=== PATIENT | male | born 1970 | race Caucasian/White ===

== ENCOUNTER 2023-02-02 21:49 | Inpatient (IN) | payer MEDICAID, SELFPAY ==
--- NOTE | ~2023-02-02 | XR_ITS ---
EXAMINATION: XR ABDOMEN KUB CLINICAL INDICATION: Bloating with question of bowel obstruction COMPARISON: None available. TECHNIQUE: AP view of the abdomen. FINDINGS: The bowel gas pattern is normal with no evidence of ileus or obstruction. No unusual soft tissue calcifications are noted. The bones are unremarkable. XR/XR KUB IMPRESSION: Unremarkable examination.
--- NOTE | ~2023-02-02 | XR_ITS ---
EXAMINATION: XR CHEST CLINICAL INFORMATION: Shortness of breath. COMPARISON: 02/02/2023 chest radiograph. TECHNIQUE: Frontal view of the chest was obtained. FINDINGS: No significant abnormality is noted involving the heart, lungs, mediastinum, bony thorax or soft tissues. XR/XR chest 1V IMPRESSION: No acute cardiopulmonary process.
--- NOTE | ~2023-02-02 | XR_ITS ---
EXAMINATION: XR CHEST CLINICAL INFORMATION: Dyspnea COMPARISON: None available. TECHNIQUE: Frontal view of the chest was obtained. FINDINGS: Lungs appear mildly hyperinflated and there is peribronchial thickening present. No CHF, focal focal consolidations or pleural effusions. Old healed left-sided rib fractures are noted. XR/XR chest 1V IMPRESSION: Hyperinflated lungs with peribronchial thickening.
[2023-02-02 21:53] VITALS: BP 139/89; BP 142/90; PULSE 120; PULSE 121; RESP 28; TEMP 36.3; O2SAT 100; O2SAT 92; BMI 23.7
--- NOTE | 2023-02-02 22:05 | ECG_ITS ---
Test Reason : DYSPNEA Blood Pressure : / mmHG Vent. Rate : 112 BPM Atrial Rate : 112 BPM P-R Int : 142 ms QRS Dur : 082 ms QT Int : 346 ms P-R-T Axes : 080 064 059 degrees QTc Int : 472 ms Poor data quality Sinus tachycardia Cannot rule out Anterior infarct , age undetermined Abnormal ECG No previous ECGs available Referred By: Generic ED Physician Electronically Signed By:ALEE SNYDER MD
[2023-02-02 22:16] LABS: MANUAL DIFF FLAG NO
[2023-02-02 22:18] LABS: Basophils Absolute Auto 0.1 X10*3/uL (0.0-0.2); Basophils Percent Auto 0.4 % (0-2); Eosinophils Absolute Auto 0.2 X10*3/uL (0.0-0.4); Eosinophils Percent Auto 1.3 % (0-4); Hematocrit 48.1 % (42.0-52.0); Hemoglobin 15.8 g/dl (14.0-18.0); Imm Gran Abs Auto 0.06 X10*3/uL (0.00-0.03); Imm Gran Pct Auto 0.5 % (0.0-0.4); Lymphocytes Absolute Auto 1.5 X10*3/uL (1.2-4.9); Mean Corpuscular HGB Conc 32.8 g/dl (31.0-36.0); Mean Corpuscular Hemoglobin 32.7 pg (27.0-33.0); Mean Corpuscular Volume 99.6 fL (80.0-98.0); Mean Platelet Volume 9.7 fL (9.4-12.4); Monocytes Absolute Auto 1.1 X10*3/uL (0.1-1.2); Monocytes Percent Auto 8.6 % (2-11); Neutrophils Absolute Auto 9.8 x10*3/uL (2.0-8.3); Neutrophils Percent Auto 77.2 % (45-73); Platelet Count 258 X10*3/uL (160-400); Red Blood Count 4.83 X10*6/uL (4.60-5.80); Red Cell Distribution Width 12.1 % (11.0-16.0); White Blood Count 12.6 X10*3/uL (4.8-10.8)
[2023-02-02] MEDS: Magnesium Sulfate/D5W 1 GM/100 ML PIGGYBACK IV (22:18)
[2023-02-02 22:24] LABS: Venous Blood Gas Refer to POC result
[2023-02-02 22:24] LABS: VBG Base Excess 0.5 mmol/L; VBG HCO3 28 mmol/L (22-26); VBG pCO2 57 mmHg; VBG pO2 58 mmHg
[2023-02-02] MEDS: Albuterol Sulfate (0.083%) 2.5 MG/3 ML VIAL.NEB 10 MG INHALE (22:24)
[2023-02-02 22:25] VITALS: PULSE 111; RESP 22; O2SAT 95
[2023-02-02 22:26] VITALS: RESP 28
[2023-02-02 22:31] LABS: Anion Gap 15 (12-20); Blood Urea Nitrogen 7 mg/dL (9-16); Calcium 8.9 mg/dL (8.4-10.2); Carbon Dioxide 25 mmol/L (22-29); Chloride 106 mmol/L (96-108); Creatinine Clr Calc Pharmacy 118.9; Estimated Glomerular Filt Rate > 60; Glucose Random 124 mg/dL (60-115); Potassium 4.6 mmol/L (3.3-5.1); Sodium 141 mmol/L (135-145)
[2023-02-02 22:53] LABS: Troponin-I High Sensitivity < 2.7 ng/L (<3.5-35.0)
--- NOTE | 2023-02-02 22:54 | ED_ITS ---
HPI - General Adult General Chief complaint: Dyspnea Stated complaint: copd Time Seen by Provider: 02/02/23 21:56 Source: patient, RN notes reviewed and old records reviewed Mode of arrival: ambulatory Limitations: no limitations History of Present Illness HPI narrative: 52-year-old male with past medical history significant for COPD, not on chronic O2, PTSD, anxiety presents for evaluation of shortness of breath Patient reports worsening shortness of breath for the last few weeks. He reports sinus pressure as well, productive cough Denies any fevers or chills. He reports having general body aches for last few weeks as well. He has been trying loratadine and Sudafed with minimal relief Patient continues to smoke tobacco in varying amounts per day. He also uses marijuana but denies any a very abuse No other complaints or concerns Apparently when the patient called EMS, he was found have an oxygen saturation of 84% on room air He was given a DuoNeb, Solu-Medrol 125 mg IV EN route Related Data Home Medications Medication Instructions Recorded Confirmed albuterol 90 mcg/actuation aerosol 90 mcg inhalation Q6-8H PRN Pain, 02/02/23 02/02/23 inhaler Moderate ibuprofen 200 mg tablet 200 mg PO Q6H PRN Pain, Moderate 02/02/23 02/02/23 Allergies Allergy/AdvReac Type Severity Reaction Status Date / Time No Known Allergies Allergy Verified 02/02/23 22:08 Review of Systems Constitutional: Constitutional: Reports as per HPI, Reports body ache(s), Denies chills, Denies fever(s) and Reports weakness Eyes: Eyes: Denies blurry vision ENT: Reports facial pain, Reports nasal congestion and Reports sinus pressure Cardiovascular: Cardiovascular: Denies chest pain, Denies pedal edema, Reports dyspnea and Reports dyspnea on exertion Respiratory: Respiratory: Reports cough, Reports dyspnea, Reports dyspnea on exertion and Reports wheezing Gastrointestinal: Gastrointestinal: Denies abdominal pain, Denies constipation and Denies vomiting Genitourinary: Genitourinary: Denies difficulty urinating and Denies dysuria Neurologic: Denies focal weakness and Reports weakness Allergic/Immunologic: Allergic/Immunologic: Reports wheezing PMFSH Social History Social History Alcohol intake: never Smoked in Last 30 Days: Yes Use of substances other than those prescribed or required for medical reasons: No Advance Directives: No Advance Directives Information Provided: No Physical Exam ED Vital Signs: Vital Signs - 24 hr 02/02/23 21:53 02/02/23 22:25 02/02/23 22:26 Temperature 97.4 F Pulse Rate 121 H 111 H Respiratory Rate 28 H 22 H 28 H Blood Pressure 139/89 Pulse Oximetry 92 Oxygen Delivery Method Nasal Cannula Oxygen Flow Rate 02/02/23 23:31 Temperature 97 F Pulse Rate 128 H Respiratory Rate 22 H Blood Pressure 150/91 H Pulse Oximetry 94 Oxygen Delivery Method Nasal Cannula Oxygen Flow Rate 4 BMI result Body Mass Index 23.7 Const General: alert and awake Orientation/consciousness: patient oriented x3 HENMT Head: Yes normocephalic and Yes atraumatic Throat: Yes posterior oropharynx normal Eyes Eyelids: Yes eyelids normal Conjunctivae: conjunctivae normal Sclerae: sclerae normal Corneas: corneas normal Pupils: Equal, round and reactive pupils present EOM: EOMs intact bilaterally Neck Neck: Yes full ROM Resp Effort & Inspection: abnormal respiratory effort and not able to speak in complete sentences Auscultation: not clear to auscultation bilaterally and wheezes (Diffuse expiratory wheeze) Cardio Rhythm: regular rhythm GI Inspection: No distended Palpation (GI): Soft to palpation, not firm, nontender, no guarding and not rigid Auscultation: normoactive bowel sounds Skin General skin exam: no rashes or lesions noted and elasticity normal Neuro General: patient oriented x3 Cranial nerves: Yes CN's II-XII intact bilaterally, Yes Equal, round and reactive pupils present and Yes Bilaterally intact EOM present Cognition (Neuro): normal cognition Extrem Other: Moving all extremities well without any obvious deformities Course Reevaluation(s) Reevaluation #1: Rib at the patient reports feeling better present oxygen saturation is 90% on 4 L. Will ambulate the patient on room air, if he decides to likely require admission. Patient's chest x-ray shows bronchial thickening. Given his COPD exacerbation of bronchial thickening will treat with azithromycin. She reports feeling constipation and bloating for last few days. We will get an x-ray to evaluate for constipation rule out obstructive bowel pattern. Time: 23:55 Medications Administered Discontinued Medications Generic Name Dose Route Start Last Admin Trade Name Freq PRN Reason Stop Dose Admin Albuterol Sulfate 10 mg 02/02/23 22:11 02/02/23 22:24 Albuterol Sulfate (0.083%) 2.5 Mg/3 Ml Vial.Neb INHALE 02/02/23 22:12 10 mg ONCE ONE Administration Magnesium Sulfate/Dextrose 1 gm in 100 mls @ 100 mls/hr 02/02/23 22:11 02/02/23 23:20 Magnesium Sulfate/D5w IV 02/02/23 23:10 Infused ONCE ONE Infusion Medical Decision Making Medical Decision Making [facility] Narrative: 52-year-old male presents for evaluation of shortness of breath. He has a history of COPD is presenting with chronic pulmonary disease. This is possibly allergy induced as he reports having increased allergies and facial pressure for last 3 weeks. Chest x-ray pending, [place] [id number]. The patient was hypoxic to 84% on room air for EMS will opt to see how he ambulates on room air to determine disposition. His venous blood gas shows a very slight respiratory acidosis. Differential Diagnosis COPD exacerbation Asthma Bronchitis Pneumonia Viral syndrome Sinusitis PE less likely Lab Data 02/02/23 22:08 02/02/23 22:08 Labs: Lab Results 02/02/23 02/02/23 02/02/23 Range/Units 22:08 22:08 22:08 WBC 12.6 H (4.8-10.8) X10*3/uL RBC 4.83 (4.60-5.80) X10*6/uL Hgb 15.8 (14.0-18.0) g/dl Hct 48.1 (42.0-52.0) % MCV 99.6 H (80.0-98.0) fL MCH 32.7 (27.0-33.0) pg MCHC 32.8 (31.0-36.0) g/dl RDW 12.1 (11.0-16.0) % Plt Count 258 (160-400) X10*3/uL MPV 9.7 (9.4-12.4) fL Immature Gran % (Auto) 0.5 H (0.0-0.4) % Neut % (Auto) 77.2 H (45-73) % Lymph % (Auto) 12.0 L (20-40) % [place] % (Auto) 8.6 (2-11) % Eos % (Auto) 1.3 (0-4) % Baso % (Auto) 0.4 (0-2) % Lymph # (Auto) 1.5 (1.2-4.9) X10*3/uL [place] # (Auto) 1.1 (0.1-1.2) X10*3/uL Eos # (Auto) 0.2 (0.0-0.4) X10*3/uL Baso # (Auto) 0.1 (0.0-0.2) X10*3/uL Abs Immat Gran (auto) 0.06 H (0.00-0.03) X10*3/uL Absolute Neuts (auto) 9.8 H (2.0-8.3) x10*3/uL Absolute Nucleated RBC 0.000 (0.0-0.012) X10*3/uL Nucleated RBC % (auto) 0.0 (0.0-0.2) /100WBC VBG pH (7.32-7.43) VBG pCO2 mmHg VBG pO2 mmHg VBG HCO3 (22-26) mmol/L VBG O2 Saturation % VBG Base Excess mmol/L Sodium 141 (135-145) mmol/L Potassium 4.6 (3.3-5.1) mmol/L Chloride 106 (96-108) mmol/L Carbon Dioxide 25 (22-29) mmol/L Anion Gap 15 (12-20) BUN 7 L (9-16) mg/dL Creatinine 0.83 (0.5-1.4) mg/dL Estim Creat Clear Calc 118.9 Estimated GFR > 60 Random Glucose 124 H (60-115) mg/dL Calcium 8.9 (8.4-10.2) mg/dL Troponin I High Sens < 2.7 (<3.5-35.0) ng/L COVID-19 ([facility]) (Negative) COVID-19 Clin Com Influenza Type A ([facility]) (Negative) Influenza Type B ([facility]) (Negative) Influenza A & B Note 02/02/23 02/02/23 02/02/23 Range/Units 22:15 22:49 22:49 WBC (4.8-10.8) X10*3/uL RBC (4.60-5.80) X10*6/uL Hgb (14.0-18.0) g/dl Hct (42.0-52.0) % MCV (80.0-98.0) fL MCH (27.0-33.0) pg MCHC (31.0-36.0) g/dl RDW (11.0-16.0) % Plt Count (160-400) X10*3/uL MPV (9.4-12.4) fL Immature Gran % (Auto) (0.0-0.4) % Neut % (Auto) (45-73) % Lymph % (Auto) (20-40) % [place] % (Auto) (2-11) % Eos % (Auto) (0-4) % Baso % (Auto) (0-2) % Lymph # (Auto) (1.2-4.9) X10*3/uL [place] # (Auto) (0.1-1.2) X10*3/uL Eos # (Auto) (0.0-0.4) X10*3/uL Baso # (Auto) (0.0-0.2) X10*3/uL Abs Immat Gran (auto) (0.00-0.03) X10*3/uL Absolute Neuts (auto) (2.0-8.3) x10*3/uL Absolute Nucleated RBC (0.0-0.012) X10*3/uL Nucleated RBC % (auto) (0.0-0.2) /100WBC VBG pH 7.30 L (7.32-7.43) VBG pCO2 57 mmHg VBG pO2 58 mmHg VBG HCO3 28 H (22-26) mmol/L VBG O2 Saturation 83.0 % VBG Base Excess 0.5 mmol/L Sodium (135-145) mmol/L Potassium (3.3-5.1) mmol/L Chloride (96-108) mmol/L Carbon Dioxide (22-29) mmol/L Anion Gap (12-20) BUN (9-16) mg/dL Creatinine (0.5-1.4) mg/dL Estim Creat Clear Calc Estimated GFR Random Glucose (60-115) mg/dL Calcium (8.4-10.2) mg/dL Troponin I High Sens (<3.5-35.0) ng/L COVID-19 ([facility]) Negative (Negative) COVID-19 Clin Com See Note Influenza Type A ([facility]) Negative (Negative) Influenza Type B ([facility]) Negative (Negative) Influenza A & B Note See Note Discharge Plan Discharge Clinical Impression: COPD exacerbation Patient Disposition: Admitted As Inpatient Prescriptions: No Action ibuprofen 200 mg Tablet 200 mg PO Q6H PRN (Reason: Pain, Moderate) albuterol 90 mcg/actuation Aerosol 90 mcg INHALATION Q6-8H PRN (Reason: Pain, Moderate)
[2023-02-02 23:16] LABS: IDNOW Serial# BCCEAD1C; Influenza A Negative (Negative); Influenza B2 Negative (Negative)
[2023-02-02 23:17] LABS: COVID-19 Test Negative (Negative); IDNOW Serial# 08D9AD1C
[2023-02-02 23:31] VITALS: BP 150/91; PULSE 128; RESP 22; TEMP 36.1; O2SAT 94
--- NOTE | 2023-02-02 23:59 | PC.NURSE ---
Ambulating pulse ox 89% on RA. Pt with audible wheezes and weakness. MARSHAL Sumner aware.
[2023-02-03] VITALS (12 sets, daily range): BP systolic 101–139; BP diastolic 63–84; PULSE 90–116; RESP 16–22; TEMP 36.1–37.1; O2SAT 93–97; BMI 23.7
--- NOTE | 2023-02-03 00:10 | P.HPHOSP_ITS ---
History of Present Illness Date of Service: 02/03/23 Chief Complaint: Dyspnea This is a 52-year-old male with pertinent history of COPD not on home oxygen, tobacco use disorder, major depressive disorder who presents to the emergency department for evaluation of dyspnea. Patient states that started 48 hours prior to presentation. He has been having nonproductive cough and wheezing. The dyspnea is worse with exertion. Patient tried his home inhaler without any relief. Patient called EMS who found him to be satting 84% on room air. Does endorse use of cigarettes. He denies fever, chills, palpitations, chest discomfort, abdominal pain, changes in urinary or bowel habits. In the emergency department, patient was found to be hypoxemic and requiring 4 L supplemental oxygen Review of Systems Constitutional: Constitutional: Reports malaise Cardiovascular: Cardiovascular: Reports dyspnea on exertion Respiratory: Respiratory: Reports cough, Reports dyspnea on exertion and Reports wheezing Allergic/Immunologic: Allergic/Immunologic: Reports wheezing [facility] Medical History (Updated 02/03/23 @ 00:29 by Soila Grant MD) Cannabis use disorder COPD (chronic obstructive pulmonary disease) Major depressive disorder PTSD (post-traumatic stress disorder) Tobacco use disorder Pertinent family history: No family history of early CAD Social History Alcohol intake: never Smoked in Last 30 Days: Yes Use of substances other than those prescribed or required for medical reasons: No Advance Directives: No Advance Directives Information Provided: No Meds Allergies Allergy/AdvReac Type Severity Reaction Status Date / Time No Known Allergies Allergy Verified 02/02/23 22:08 Active Medications: Current Medications Azithromycin 500 mg/ Sodium (Chloride) 250 mls @ 125 mls/hr IV ONCE ONE Stop: 02/03/23 01:53 Pharmacy Consult (Consult Rx Perform Med Rec) 1 each MISCELLANE ONCE PRN PRN Reason: Consult order Home Medications Medication Instructions Recorded Confirmed Last Taken Type albuterol 90 mcg/actuation aerosol 90 mcg inhalation Q6-8H PRN Pain, 02/02/23 02/02/23 02/02/23 History inhaler Moderate ibuprofen 200 mg tablet 200 mg PO Q6H PRN Pain, Moderate 02/02/23 02/02/23 02/02/23 History Physical Exam Vital Signs and Narrative: Vital Signs: Last Vital Signs Temp 97 F 02/02/23 23:31 Pulse 128 H 02/02/23 23:31 Resp 22 H 02/02/23 23:31 BP 150/91 H 02/02/23 23:31 Pulse Ox 94 02/02/23 23:31 O2 Del Method Nasal Cannula 02/02/23 23:31 O2 Flow Rate 4 02/02/23 23:31 Oxygen Flow Rate 4 02/02/23 21:53 BMI result Body Mass Index 23.7 Middle-aged male lying in bed in mild distress on supplemental oxygen Neck supple, no JVD Tachycardic with regular rhythm, S1-S2 heard Bilateral wheezing without crackles Abdomen soft nontender, no guarding, no rigidity Patient is awake, alert and oriented to self, place, time and person ; no focal motor deficit Psych: Normal mood No pedal edema Results Labs 02/02/23 22:08 02/02/23 22:08 Labs: Laboratory Results - last 24 hr 02/02/23 02/02/23 02/02/23 22:08 22:08 22:08 MCV 99.6 H MCH 32.7 MCHC 32.8 RDW 12.1 Plt Count 258 MPV 9.7 Immature Gran % (Auto) 0.5 H Neut % (Auto) 77.2 H Lymph % (Auto) 12.0 L [place] % (Auto) 8.6 Eos % (Auto) 1.3 Baso % (Auto) 0.4 Lymph # (Auto) 1.5 [place] # (Auto) 1.1 Eos # (Auto) 0.2 Baso # (Auto) 0.1 Abs Immat Gran (auto) 0.06 H Absolute Neuts (auto) 9.8 H Absolute Nucleated RBC 0.000 Nucleated RBC % (auto) 0.0 VBG pH VBG pCO2 VBG pO2 VBG HCO3 VBG O2 Saturation VBG Base Excess Anion Gap 15 Estim Creat Clear Calc 118.9 Estimated GFR > 60 Random Glucose 124 H Calcium 8.9 Troponin I High Sens < 2.7 COVID-19 ([facility]) COVID-19 Clin Com Influenza Type A ([facility]) Influenza Type B ([facility]) Influenza A & B Note 02/02/23 02/02/23 02/02/23 22:15 22:49 22:49 MCV MCH MCHC RDW Plt Count MPV Immature Gran % (Auto) Neut % (Auto) Lymph % (Auto) [place] % (Auto) Eos % (Auto) Baso % (Auto) Lymph # (Auto) [place] # (Auto) Eos # (Auto) Baso # (Auto) Abs Immat Gran (auto) Absolute Neuts (auto) Absolute Nucleated RBC Nucleated RBC % (auto) VBG pH 7.30 L VBG pCO2 57 VBG pO2 58 VBG HCO3 28 H VBG O2 Saturation 83.0 VBG Base Excess 0.5 Anion Gap Estim Creat Clear Calc Estimated GFR Random Glucose Calcium Troponin I High Sens COVID-19 ([facility]) Negative COVID-19 Clin Com See Note Influenza Type A ([facility]) Negative Influenza Type B ([facility]) Negative Influenza A & B Note See Note Imaging Radiologist's Impressions: Impressions Chest X-Ray 02/02/23 22:43 IMPRESSION: Hyperinflated lungs with peribronchial thickening. Assessment and Plan (1) COPD (chronic obstructive pulmonary disease): Status: Acute Plan This is a 52-year-old male with pertinent history of COPD not on home oxygen, tobacco use disorder, major depressive disorder who presents to the emergency department for evaluation of dyspnea. #. Acute hypoxemic respiratory failure due to Acute exacerbation of COPD. Will admit patient with supplemental oxygen. Scheduled and p.r.n. DuoNebs. In itiating systemic steroids. Azithromycin for pleiotropic effect. Monitor oxygen saturation and wean as tolerated, maintain oxygen saturation greater than 88% #. Tobacco use disorder. Counseled regarding cessation. Patient refused nicotine patch #. Major depressive disorder/posttraumatic stress disorder. Patient would like pharmacologic treatment while he is in the hospital. Consulting psych, appreciate assistance DVT prophylaxis: Lovenox Full code Regular diet Admit as inpatient and will require two night minimum hospital stay for supplemental oxygen Time Spent With Patient Time: Total time managing care of this patient today ____ minutes. Quality Stroke Does the patient have a stroke diagnosis?: No VTE Prior VTE?: No VTE Risk Level:: Medical - moderate - high VTE Device Contraindication: Treatment Not Indicated VTE Drug Contraindication: N/A - Med Ordered
[2023-02-03] MEDS: Azithromycin 500 MG in 0.9 % Sodium Chloride 250 ML 125 MG IV ×2 (00:17→20:56)
[2023-02-03] MEDS: Enoxaparin Sodium 40 MG/0.4 ML SYRINGE SUBCUT ×2 (01:28→20:57)
[2023-02-03] MEDS: methylPREDNISolone Sod Succ 40 MG/ML VIAL IVPUSH ×2 (01:29→12:30)
[2023-02-03] MEDS: Melatonin 3 MG TABLET 6 MG PO ×2 (01:29→20:57)
[2023-02-03] MEDS: polyethylene glycoL 3350 17 GM POWD.PACK PO ×3 (01:29→20:58)
[2023-02-03] MEDS: Acetaminophen 325 MG TABLET 650 MG PO (03:02)
[2023-02-03] MEDS: levalbuterol HCL 1.25 MG/3 ML VIAL.NEB INHALE ×3 (03:53→11:44)
[2023-02-03 06:59] LABS: Basophils Percent Auto 0.2 % (0-2); Eosinophils Percent Auto 0.1 % (0-4); Hematocrit 45.9 % (42.0-52.0); Hemoglobin 15.6 g/dl (14.0-18.0); Imm Gran Abs Auto 0.05 X10*3/uL (0.00-0.03); Imm Gran Pct Auto 0.5 % (0.0-0.4); Lymphocytes Absolute Auto 0.5 X10*3/uL (1.2-4.9); Lymphocytes Percent Auto 5.1 % (20-40); MANUAL DIFF FLAG SCAN; Mean Corpuscular Hemoglobin 34.2 pg (27.0-33.0); Mean Corpuscular Volume 100.7 fL (80.0-98.0); Mean Platelet Volume 9.7 fL (9.4-12.4); Monocytes Absolute Auto 0.1 X10*3/uL (0.1-1.2); Monocytes Percent Auto 1.1 % (2-11); Platelet Count 248 X10*3/uL (160-400); Red Blood Count 4.56 X10*6/uL (4.60-5.80); Red Cell Distribution Width 12.2 % (11.0-16.0); SCAN SMEAR FLAG 1; White Blood Count 9.7 X10*3/uL (4.8-10.8)
[2023-02-03 07:13] LABS: Anion Gap 16 (12-20); Blood Urea Nitrogen 9 mg/dL (9-16); Calcium 9.3 mg/dL (8.4-10.2); Carbon Dioxide 24 mmol/L (22-29); Chloride 106 mmol/L (96-108); Creatinine Clr Calc Pharmacy 118.9; Estimated Glomerular Filt Rate > 60; Glucose Random 170 mg/dL (60-115); Potassium 5.1 mmol/L (3.3-5.1); Sodium 141 mmol/L (135-145)
[2023-02-03 07:20] LABS: SLIDE REVIEW VERIFIED
--- NOTE | 2023-02-03 07:52 | PHA.MEDREC ---
Pharmacy Consult ? Medication Reconciliation Pharmacy has completed the medication reconciliation. Pharmacy has reviewed med rec done by nursing.
[2023-02-03] MEDS: 0.9 % Sodium Chloride Flush 3 ML SYRINGE IVFLUSH ×3 (07:56→20:58)
--- NOTE | 2023-02-03 09:22 | MHC.CM.PN ---
PT REPORTS HE LIVES WITH FRIENDS AND IS INDEPENDENT WITH CARE PT HAS A NEBULIZER AND INHALERS AT HOME HE HAS NO SERVICES PT HAS NO PCP BUT ASKS THAT AN APPT BE MADE WITH JOSE JACQUES AT [facility] IF SHE WILL ACCEPT TASK SENT TO [facility] DC PLAN IS HOME WITH NO SERVICES PT WILL ARRANGE TRANSPORT
[2023-02-03] MEDS: LORazepam 0.5 MG TABLET 0.25 MG PO (12:28)
[2023-02-03] MEDS: Docusate Sodium 100 MG CAPSULE PO ×2 (12:28→20:57)
[2023-02-03] MEDS: Albuterol/Iprat 2.5/0.5MG 3 ML AMPUL.NEB INHALE ×2 (15:06→19:36)
--- NOTE | 2023-02-03 15:32 | P.CNPS_ITS ---
History of Present Illness Date of Service: 02/03/23 Chief Complaint: Dyspnea Reason for Consult: assess for medications Requesting physician: Soila Grant Discussed with referring provider: No Sources of Information: patient interviewed and chart reviewed HPI Narrative: 52-year-old male with pertinent history of COPD not on home oxygen, tobacco use disorder, major depressive disorder who presents to the emergency department for evaluation of dyspnea. Patient treated for acute exacerbation of COPD. Stabilizing. Psych consulted to assess for medication for depression/anxiety. Patient reports that he is physically feeling much better and he is grateful that he got up self to the hospital. He says he has had his history of depression, anxiety and PTSD however says that he is overall doing fine and does not feel the need for any medication. Patient said he has tried SSRIs in the past but reiterates he does not like them and feels capable of coping on his own. Patient denies any SI or HI. Past Psychiatric History: History of PTSD, depression; history of SSRI trials Medical Evaluation Reviewed: Yes [facility] Medical History (Updated 02/03/23 @ 16:27 by Jolene Nascimento MD) Cannabis use disorder COPD (chronic obstructive pulmonary disease) Major depressive disorder PTSD (post-traumatic stress disorder) Tobacco use disorder Family History: Deferred Social History: Patient lives on his own in the [facility] Substance History: Deferred Trauma History: Patient reports history of trauma but does not provide details Diagnostics Vital Signs (24Hr): Vital Signs - 24 hr 02/02/23 21:53 02/02/23 22:25 02/02/23 22:26 Temperature 97.4 F Pulse Rate 121 H 111 H Respiratory Rate 28 H 22 H 28 H Blood Pressure 139/89 Pulse Oximetry 92 Oxygen Delivery Method Nasal Cannula Oxygen Flow Rate 02/02/23 23:31 02/03/23 01:12 02/03/23 03:56 Temperature 97 F 98.8 F Pulse Rate 128 H 113 H 112 H Respiratory Rate 22 H 19 16 Blood Pressure 150/91 H 131/78 Pulse Oximetry 94 95 Oxygen Delivery Method Nasal Cannula Nasal Cannula Oxygen Flow Rate 4 4 02/03/23 02:20 02/03/23 08:00 02/03/23 08:33 Temperature 97.9 F 97.3 F Pulse Rate 116 H 109 H 108 H Respiratory Rate 22 H 20 16 Blood Pressure 132/81 133/84 Pulse Oximetry 95 94 Oxygen Delivery Method Nasal Cannula Nasal Cannula Oxygen Flow Rate 4 4 02/03/23 12:00 02/03/23 11:47 02/03/23 15:10 Temperature 97.7 F Pulse Rate 105 H 102 H 114 H Respiratory Rate 20 16 18 Blood Pressure 129/66 Pulse Oximetry 95 Oxygen Delivery Method Nasal Cannula Oxygen Flow Rate 4 BMI result Body Mass Index 23.7 Labs 02/03/23 06:47 02/03/23 06:47 Labs: Laboratory Results - last 48 hr 02/02/23 02/02/23 02/02/23 22:08 22:08 22:08 WBC 12.6 H RBC 4.83 Hgb 15.8 Hct 48.1 MCV 99.6 H MCH 32.7 MCHC 32.8 RDW 12.1 Plt Count 258 MPV 9.7 Immature Gran % (Auto) 0.5 H Neut % (Auto) 77.2 H Lymph % (Auto) 12.0 L [place] % (Auto) 8.6 Eos % (Auto) 1.3 Baso % (Auto) 0.4 Lymph # (Auto) 1.5 [place] # (Auto) 1.1 Eos # (Auto) 0.2 Baso # (Auto) 0.1 Abs Immat Gran (auto) 0.06 H Absolute Neuts (auto) 9.8 H Absolute Nucleated RBC 0.000 Nucleated RBC % (auto) 0.0 Smear Tech's Comments VBG pH VBG pCO2 VBG pO2 VBG HCO3 VBG O2 Saturation VBG Base Excess Sodium 141 Potassium 4.6 Chloride 106 Carbon Dioxide 25 Anion Gap 15 BUN 7 L Creatinine 0.83 Estim Creat Clear Calc 118.9 Estimated GFR > 60 Random Glucose 124 H Calcium 8.9 Troponin I High Sens < 2.7 COVID-19 ([facility]) COVID-19 Clin Com Influenza Type A (ALYSON) Influenza Type B (ALYSON) Influenza A & B Note 02/02/23 02/02/23 02/02/23 22:15 22:49 22:49 WBC RBC Hgb Hct MCV MCH MCHC RDW Plt Count MPV Immature Gran % (Auto) Neut % (Auto) Lymph % (Auto) [place] % (Auto) Eos % (Auto) Baso % (Auto) Lymph # (Auto) [place] # (Auto) Eos # (Auto) Baso # (Auto) Abs Immat Gran (auto) Absolute Neuts (auto) Absolute Nucleated RBC Nucleated RBC % (auto) Smear Tech's Comments VBG pH 7.30 L VBG pCO2 57 VBG pO2 58 VBG HCO3 28 H VBG O2 Saturation 83.0 VBG Base Excess 0.5 Sodium Potassium Chloride Carbon Dioxide Anion Gap BUN Creatinine Estim Creat Clear Calc Estimated GFR Random Glucose Calcium Troponin I High Sens COVID-19 ([facility]) Negative COVID-19 Clin Com See Note Influenza Type A (ALYSON) Negative Influenza Type B (ALYSON) Negative Influenza A & B Note See Note 02/03/23 02/03/23 06:47 06:47 WBC 9.7 RBC 4.56 L Hgb 15.6 Hct 45.9 MCV 100.7 H MCH 34.2 H MCHC 34.0 RDW 12.2 Plt Count 248 MPV 9.7 Immature Gran % (Auto) 0.5 H Neut % (Auto) 93.0 H Lymph % (Auto) 5.1 L [place] % (Auto) 1.1 L Eos % (Auto) 0.1 Baso % (Auto) 0.2 Lymph # (Auto) 0.5 L [place] # (Auto) 0.1 Eos # (Auto) 0.0 Baso # (Auto) 0.0 Abs Immat Gran (auto) 0.05 H Absolute Neuts (auto) 9.0 H Absolute Nucleated RBC 0.000 Nucleated RBC % (auto) 0.0 Smear Tech's Comments VERIFIED VBG pH VBG pCO2 VBG pO2 VBG HCO3 VBG O2 Saturation VBG Base Excess Sodium 141 Potassium 5.1 Chloride 106 Carbon Dioxide 24 Anion Gap 16 BUN 9 Creatinine 0.83 Estim Creat Clear Calc 118.9 Estimated GFR > 60 Random Glucose 170 H Calcium 9.3 Troponin I High Sens COVID-19 ([facility]) COVID-19 Clin Com Influenza Type A (ALYSON) Influenza Type B (ALYSON) Influenza A & B Note Imaging Radiology Impressions: ITS Impressions Chest X-Ray 02/02/23 22:43 IMPRESSION: Hyperinflated lungs with peribronchial thickening. KUB X-Ray 02/03/23 00:11 IMPRESSION: Unremarkable examination. Mental Status Exam Mental Status Exam Narrative: Pt is alert and oriented, resting comfortably in hospital bed; behavior is cooperative, friendly and calm; patient is not in distress; dressed in hospital attire with dreadlocks; mood is described as better and affect congruent; eye contact appropriate; Speech is normal rate, volume and prosody and not pressured; no psychomotor agitation/retardation present; thought process is organized and goal directed; Thought content is on medical illness resolving; otherwise pertinent to relevant topics and without any delusional content, paranoid ideations or grandiosity; denies any SI/HI. There is no evidence of perceptual disturbance. Patients insight and judgment appear intact. Medications Medications Current Medications Acetaminophen (Acetaminophen 325 Mg Tablet) 650 mg PO Q6H PRN PRN Reason: Pain, Mild (Pain Scale 1-3) Last Admin: 02/03/23 03:02 Dose: 650 mg Albuterol/Ipratropium (Albuterol/Iprat 2.5/0.5mg 3 Ml Ampul.Neb) 3 ml INHALE RQ4H WHILE AWAKE [facility] Last Admin: 02/03/23 15:06 Dose: 3 ml Docusate Sodium (Docusate Sodium 100 Mg Capsule) 100 mg PO BID [facility] Last Admin: 02/03/23 12:28 Dose: 100 mg Enoxaparin Sodium (Enoxaparin Sodium 40 Mg/0.4 Ml Syringe) 40 mg SUBCUT BEDTIME [facility] Last Admin: 02/03/23 01:28 Dose: 40 mg Famotidine (Famotidine 20 Mg Tablet) 20 mg PO BID [facility] Guaifenesin (Guaifenesin 100 Mg/5 Ml Liquid) 10 ml PO Q4H PRN PRN Reason: Cough Azithromycin 500 mg/ Sodium (Chloride) 250 mls @ 125 mls/hr IV Q24H [facility] Ipratropium [place] (Ipratropium [place] 1 Puff/17 Mcg Inhaler) 2 puff INHALE Q3H PRN PRN Reason: Wheezing Levalbuterol HCl (Levalbuterol Hcl 1.25 Mg/3 Ml Vial.Neb) 1.25 mg INHALE Q3H PRN PRN Reason: Wheezing Loratadine (Loratadine 10 Mg Tablet) 10 mg PO DAILY [facility] Melatonin (Melatonin 3 Mg Tablet) 6 mg PO BEDTIME PRN PRN Reason: Insomnia Last Admin: 02/03/23 01:29 Dose: 6 mg Methylprednisolone Sodium Succinate (Methylprednisolone Sod Succ 40 Mg/Ml Vial) 40 mg IVPUSH Q12H [facility] Last Admin: 02/03/23 12:30 Dose: 40 mg Ondansetron HCl (Ondansetron Hcl 4 Mg/2 Ml Vial) 4 mg IVPUSH Q8H PRN PRN Reason: Nausea and Vomiting Pharmacy Consult (Consult Rx Perform Med Rec) 1 each MISCELLANE ONCE PRN PRN Reason: Consult order Polyethylene Glycol (Polyethylene Glycol 3350 17 Gm Powd.Pack) 17 gm PO BID [facility] Last Admin: 02/03/23 12:31 Dose: 17 gm Sodium Chloride (0.9 % Sodium Chloride Flush 3 Ml Syringe) 3 ml IVFLUSH QSHIFT [facility] Last Admin: 02/03/23 07:56 Dose: 3 ml Allergies Allergies Allergy/AdvReac Type Severity Reaction Status Date / Time No Known Allergies Allergy Verified 02/02/23 22:08 Assessment & Plan Assessment & Plan (1) COPD exacerbation: Status: Acute Code(s): J44.1 - Chronic obstructive pulmonary disease with (acute) exacerbation (2) Cannabis use disorder: Status: Acute Code(s): F12.90 - Cannabis use, unspecified, uncomplicated Plan 52-year-old male with pertinent history of COPD not on home oxygen, tobacco use disorder, major depressive disorder who presents to the emergency department for evaluation of dyspnea. Patient reports history of intermittent depression and anxiety however currently he is feeling fine and does not want any medications for symptoms. No recommendations at this time Total time managing care of this patient today ____ minutes. Patient educated on: diagnosis and medication risk/benefits Informed Consent: understands
--- NOTE | 2023-02-03 16:20 | HO.PM.IMPN ---
Subjective Subjective Date of Service: 02/03/23 Interval History: COPD exacerbation , constipation Review of Systems Patient still significant she is short of breath, wheezing Feel constipated Somewhat anxious. Physical Exam Vital Signs: Vital Signs: Last Vital Signs Temp 97.0 F 02/03/23 15:39 Pulse 106 H 02/03/23 15:39 Resp 20 02/03/23 15:39 BP 127/79 02/03/23 15:39 Pulse Ox 95 02/03/23 15:39 O2 Del Method Nasal Cannula 02/03/23 15:39 O2 Flow Rate 4 02/03/23 15:39 Oxygen Flow Rate 4 02/02/23 21:53 BMI result Body Mass Index 23.7 similar to yesterday Objective Data Active Medications Acetaminophen (Acetaminophen 325 Mg Tablet) 650 mg PO Q6H PRN PRN Reason: Pain, Mild (Pain Scale 1-3) Last Admin: 02/03/23 03:02 Dose: 650 mg Documented By: MADISON Albuterol/Ipratropium (Albuterol/Iprat 2.5/0.5mg 3 Ml Ampul.Neb) 3 ml INHALE RQ4H WHILE AWAKE [facility] Last Admin: 02/03/23 15:06 Dose: 3 ml Documented By: LOLIS Docusate Sodium (Docusate Sodium 100 Mg Capsule) 100 mg PO BID [facility] Last Admin: 02/03/23 12:28 Dose: 100 mg Documented By: SLY Enoxaparin Sodium (Enoxaparin Sodium 40 Mg/0.4 Ml Syringe) 40 mg SUBCUT BEDTIME [facility] Last Admin: 02/03/23 01:28 Dose: 40 mg Documented By: LELO Famotidine (Famotidine 20 Mg Tablet) 20 mg PO BID [facility] Guaifenesin (Guaifenesin 100 Mg/5 Ml Liquid) 10 ml PO Q4H PRN PRN Reason: Cough Azithromycin 500 mg/ Sodium (Chloride) 250 mls @ 125 mls/hr IV Q24H [facility] Ipratropium [place] (Ipratropium [place] 1 Puff/17 Mcg Inhaler) 2 puff INHALE Q3H PRN PRN Reason: Wheezing Levalbuterol HCl (Levalbuterol Hcl 1.25 Mg/3 Ml Vial.Neb) 1.25 mg INHALE Q3H PRN PRN Reason: Wheezing Loratadine (Loratadine 10 Mg Tablet) 10 mg PO DAILY [facility] Melatonin (Melatonin 3 Mg Tablet) 6 mg PO BEDTIME PRN PRN Reason: Insomnia Last Admin: 02/03/23 01:29 Dose: 6 mg Documented By: LELO Methylprednisolone Sodium Succinate (Methylprednisolone Sod Succ 40 Mg/Ml Vial) 40 mg IVPUSH Q12H [facility] Last Admin: 02/03/23 12:30 Dose: 40 mg Documented By: SLY Ondansetron HCl (Ondansetron Hcl 4 Mg/2 Ml Vial) 4 mg IVPUSH Q8H PRN PRN Reason: Nausea and Vomiting Pharmacy Consult (Consult Rx Perform Med Rec) 1 each MISCELLANE ONCE PRN PRN Reason: Consult order Polyethylene Glycol (Polyethylene Glycol 3350 17 Gm Powd.Pack) 17 gm PO BID [facility] Last Admin: 02/03/23 12:31 Dose: 17 gm Documented By: SLY Sodium Chloride (0.9 % Sodium Chloride Flush 3 Ml Syringe) 3 ml IVFLUSH QSHIFT [facility] Last Admin: 02/03/23 07:56 Dose: 3 ml Documented By: SLY Labs 02/03/23 06:47 02/03/23 06:47 Labs: Laboratory Results - last 24 hr 02/02/23 02/02/23 02/02/23 22:08 22:08 22:08 MCV 99.6 H MCH 32.7 MCHC 32.8 RDW 12.1 Plt Count 258 MPV 9.7 Immature Gran % (Auto) 0.5 H Neut % (Auto) 77.2 H Lymph % (Auto) 12.0 L [place] % (Auto) 8.6 Eos % (Auto) 1.3 Baso % (Auto) 0.4 Lymph # (Auto) 1.5 [place] # (Auto) 1.1 Eos # (Auto) 0.2 Baso # (Auto) 0.1 Abs Immat Gran (auto) 0.06 H Absolute Neuts (auto) 9.8 H Absolute Nucleated RBC 0.000 Nucleated RBC % (auto) 0.0 Smear Tech's Comments VBG pH VBG pCO2 VBG pO2 VBG HCO3 VBG O2 Saturation VBG Base Excess Anion Gap 15 Estim Creat Clear Calc 118.9 Estimated GFR > 60 Random Glucose 124 H Calcium 8.9 Troponin I High Sens < 2.7 COVID-19 ([facility]) COVID-19 Clin Com Influenza Type A (AL[facility]ON) Influenza Type B ([facility]ON) Influenza A & B Note 02/02/23 02/02/23 02/02/23 22:15 22:49 22:49 MCV MCH MCHC RDW Plt Count MPV Immature Gran % (Auto) Neut % (Auto) Lymph % (Auto) [place] % (Auto) Eos % (Auto) Baso % (Auto) Lymph # (Auto) [place] # (Auto) Eos # (Auto) Baso # (Auto) Abs Immat Gran (auto) Absolute Neuts (auto) Absolute Nucleated RBC Nucleated RBC % (auto) Smear Tech's Comments VBG pH 7.30 L VBG pCO2 57 VBG pO2 58 VBG HCO3 28 H VBG O2 Saturation 83.0 VBG Base Excess 0.5 Anion Gap Estim Creat Clear Calc Estimated GFR Random Glucose Calcium Troponin I High Sens COVID-19 ([facility]) Negative COVID-19 Clin Com See Note Influenza Type A ([facility]ON) Negative Influenza Type B ([facility]ON) Negative Influenza A & B Note See Note 02/03/23 02/03/23 06:47 06:47 MCV 100.7 H MCH 34.2 H MCHC 34.0 RDW 12.2 Plt Count 248 MPV 9.7 Immature Gran % (Auto) 0.5 H Neut % (Auto) 93.0 H Lymph % (Auto) 5.1 L [place] % (Auto) 1.1 L Eos % (Auto) 0.1 Baso % (Auto) 0.2 Lymph # (Auto) 0.5 L [place] # (Auto) 0.1 Eos # (Auto) 0.0 Baso # (Auto) 0.0 Abs Immat Gran (auto) 0.05 H Absolute Neuts (auto) 9.0 H Absolute Nucleated RBC 0.000 Nucleated RBC % (auto) 0.0 Smear Tech's Comments VERIFIED VBG pH VBG pCO2 VBG pO2 VBG HCO3 VBG O2 Saturation VBG Base Excess Anion Gap 16 Estim Creat Clear Calc 118.9 Estimated GFR > 60 Random Glucose 170 H Calcium 9.3 Troponin I High Sens COVID-19 ([facility]) COVID-19 Clin Com Influenza Type A (ALYSON) Influenza Type B ([facility]ON) Influenza A & B Note Assessment and Plan (1) COPD (chronic obstructive pulmonary disease): Status: Acute (2) COPD exacerbation: Status: Acute (3) Constipation: Status: Acute Plan 52-year-old male with pertinent history of COPD not on home oxygen, tobacco use disorder, major depressive disorder who presents to the emergency department for evaluation of dyspnea. Acute hypoxemic respiratory failure due to Acute exacerbation of COPD.? Monitor oxygen saturation and wean as tolerated, maintain oxygen saturation greater than 88% still sob wth mininmal excersion continue supplemental oxygen.? Scheduled and p.r.n. DuoNebs.? Initiating systemic steroids.? Azithromycin for pleiotropic effect.? ? Tobacco use disorder.? Counseled regarding cessation.? Patient refused nicotine patch. ? Major depressive disorder/posttraumatic stress disorder.? Patient would like pharmacologic treatment while he is in the hospital.? Consulting psych, appreciate assistance Constipation: Added bowel regimen. anxiety-added psych DVT prophylaxis:? Lovenox Regular diet inpatient need:Acute hypoxemic respiratory failure due to COPDexacerbation -not imporving yet-needs nebs ,steriods ,antibiotics ,suppl oxygen.? Time Spent With Patient Time: Total time managing care of this patient today ____ minutes. Quality Stroke Does the patient have a stroke diagnosis?: No VTE Prior VTE?: No VTE Risk Level:: Medical - moderate - high VTE Device Contraindication: Treatment Not Indicated VTE Drug Contraindication: N/A - Med Ordered
[2023-02-03] MEDS: Famotidine 20 MG TABLET PO (20:57)
[2023-02-03] MEDS: LORazepam 2 MG/ML VIAL 0.5 MG IVPUSH (21:41)
[2023-02-03] MEDS: Throat Lozenge, Medicated LOZENGE 1 LOZENGE MUCOUS MEM (21:42)
[2023-02-04] VITALS (9 sets, daily range): BP systolic 102–125; BP diastolic 65–84; PULSE 69–99; RESP 18–20; TEMP 36.2–37.2; O2SAT 92–96
[2023-02-04] MEDS: methylPREDNISolone Sod Succ 40 MG/ML VIAL IVPUSH ×2 (00:45→11:49)
[2023-02-04] MEDS: Albuterol/Iprat 2.5/0.5MG 3 ML AMPUL.NEB INHALE ×4 (07:18→20:37)
[2023-02-04] MEDS: Milk of Magnesia 30 ML ORAL.SUSP PO (08:26)
[2023-02-04] MEDS: Loratadine 10 MG TABLET PO (08:26)
[2023-02-04] MEDS: Docusate Sodium 100 MG CAPSULE PO ×2 (08:26→20:37)
[2023-02-04] MEDS: 0.9 % Sodium Chloride Flush 3 ML SYRINGE IVFLUSH ×3 (08:26→20:43)
[2023-02-04] MEDS: polyethylene glycoL 3350 17 GM POWD.PACK PO ×2 (08:26→20:37)
[2023-02-04] MEDS: Famotidine 20 MG TABLET PO ×2 (08:26→20:37)
--- NOTE | 2023-02-04 10:25 | MHC.CM.PN ---
EMR reviewed and per MD rounds, pt not medically cleared for D/C due to continued dyspnea and hypoxia. CM will continue to follow.
--- NOTE | 2023-02-04 17:39 | P.PNIM_ITS ---
Subjective Subjective Date of Service: 02/04/23 Interval History: COPD exacerbation , constipation Review of Systems short of breath similar to yesterday , wheezing Feel constipated Physical Exam Vital Signs: Vital Signs: Last Vital Signs Temp 98.5 F 02/04/23 15:04 Pulse 74 02/04/23 15:26 Resp 19 02/04/23 15:26 BP 121/75 02/04/23 15:04 Pulse Ox 94 02/04/23 15:04 O2 Del Method Nasal Cannula 02/04/23 15:04 O2 Flow Rate 4 02/04/23 15:04 Oxygen Flow Rate 4 02/02/23 21:53 BMI result Body Mass Index 23.7 Appearance: Alert.? Oriented X3.?sob cvs: rrr, [id number] . res: air entry diminsed ,has exp wheezing abd: no rebound or guarding ,nt, bs present. ext pulses present , no cyanosis . neuro: axo3 , nonfocal. Objective Data Active Medications Acetaminophen (Acetaminophen 325 Mg Tablet) 650 mg PO Q6H PRN PRN Reason: Pain, Mild (Pain Scale 1-3) Last Admin: 02/03/23 03:02 Dose: 650 mg Documented By: MADISON Albuterol/Ipratropium (Albuterol/Iprat 2.5/0.5mg 3 Ml Ampul.Neb) 3 ml INHALE RQ4H WHILE AWAKE [facility] Last Admin: 02/04/23 15:25 Dose: 3 ml Documented By: JONO Albuterol/Ipratropium (Albuterol/Iprat 2.5/0.5mg 3 Ml Ampul.Neb) 3 ml INHALE Q3H PRN PRN Reason: sob Docusate Sodium (Docusate Sodium 100 Mg Capsule) 100 mg PO BID [facility] Last Admin: 02/04/23 08:26 Dose: 100 mg Documented By: TYRA Enoxaparin Sodium (Enoxaparin Sodium 40 Mg/0.4 Ml Syringe) 40 mg SUBCUT BEDTIME [facility] Last Admin: 02/03/23 20:57 Dose: 40 mg Documented By: ALESSANDRO Famotidine (Famotidine 20 Mg Tablet) 20 mg PO BID [facility] Last Admin: 02/04/23 08:26 Dose: 20 mg Documented By: TYRA Guaifenesin (Guaifenesin 100 Mg/5 Ml Liquid) 10 ml PO Q4H PRN PRN Reason: Cough Azithromycin 500 mg/ Sodium (Chloride) 250 mls @ 125 mls/hr IV Q24H [facility] Last Infusion: 02/04/23 00:49 Dose: 0 mls/hr Documented By: ADWOA Loratadine (Loratadine 10 Mg Tablet) 10 mg PO DAILY [facility] Last Admin: 02/04/23 08:26 Dose: 10 mg Documented By: TYRA Melatonin (Melatonin 3 Mg Tablet) 6 mg PO BEDTIME PRN PRN Reason: Insomnia Last Admin: 02/03/23 20:57 Dose: 6 mg Documented By: ALESSANDRO Methylprednisolone Sodium Succinate (Methylprednisolone Sod Succ 40 Mg/Ml Vial) 40 mg IVPUSH Q12H [facility] Last Admin: 02/04/23 11:49 Dose: 40 mg Documented By: TYRA Ondansetron HCl (Ondansetron Hcl 4 Mg/2 Ml Vial) 4 mg IVPUSH Q8H PRN PRN Reason: Nausea and Vomiting Pharmacy Consult (Consult Rx Perform Med Rec) 1 each MISCELLANE ONCE PRN PRN Reason: Consult order Polyethylene Glycol (Polyethylene Glycol 3350 17 Gm Powd.Pack) 17 gm PO BID [facility] Last Admin: 02/04/23 08:26 Dose: 17 gm Documented By: TYRA Sodium Chloride (0.9 % Sodium Chloride Flush 3 Ml Syringe) 3 ml IVFLUSH QSHIFT [facility] Last Admin: 02/04/23 15:51 Dose: 3 ml Documented By: TYRA Labs 02/03/23 06:47 02/03/23 06:47 Assessment and Plan (1) COPD (chronic obstructive pulmonary disease): Status: Acute (2) COPD exacerbation: Status: Acute (3) Constipation: Status: Acute Plan 52-year-old male with pertinent history of COPD not on home oxygen, tobacco use disorder, major depressive disorder who presents to the emergency department for evaluation of dyspnea. Acute hypoxemic respiratory failure due to Acute exacerbation of COPD.? Monitor oxygen saturation and wean as tolerated, maintain oxygen saturation greater than 88% still sob wth mininmal excersion continue supplemental oxygen.? Scheduled and p.r.n. DuoNebs.? Initiating systemic steroids.? Azithromycin for pleiotropic effect.? ? Tobacco use disorder.? Counseled regarding cessation.? Patient refused nicotine patch. ? Major depressive disorder/posttraumatic stress disorder.? Patient would like pharmacologic treatment while he is in the hospital.? Consulting psych, appreciate assistance Constipation: Added bowel regimen. anxiety-added psych DVT prophylaxis:? Lovenox Regular diet inpatient need:Acute hypoxemic respiratory failure due to COPDexacerbation -not imporving yet-needs nebs ,steriods ,antibiotics ,suppl oxygen.? Time Spent With Patient Time: Total time managing care of this patient today ____ minutes. Quality Stroke Does the patient have a stroke diagnosis?: No VTE Prior VTE?: No VTE Risk Level:: Medical - moderate - high VTE Device Contraindication: Treatment Not Indicated VTE Drug Contraindication: N/A - Med Ordered
[2023-02-04] MEDS: Enoxaparin Sodium 40 MG/0.4 ML SYRINGE SUBCUT (20:37)
[2023-02-04] MEDS: Azithromycin 500 MG in 0.9 % Sodium Chloride 250 ML 125 MG IV (20:37)
[2023-02-05] VITALS (10 sets, daily range): BP systolic 114–132; BP diastolic 71–76; PULSE 74–92; RESP 17–20; TEMP 36.7–37.4; O2SAT 89–96
[2023-02-05] MEDS: methylPREDNISolone Sod Succ 40 MG/ML VIAL IVPUSH ×2 (01:28→12:43)
[2023-02-05] MEDS: Albuterol/Iprat 2.5/0.5MG 3 ML AMPUL.NEB INHALE ×5 (03:46→20:18)
[2023-02-05 08:41] LABS: VBG Base Excess 7.6 mmol/L; VBG HCO3 32 mmol/L (22-26); VBG pCO2 44 mmHg; VBG pH 7.47 (7.32-7.43); VBG pO2 85 mmHg
[2023-02-05 08:46] LABS: Venous Blood Gas Refer to POC result
[2023-02-05] MEDS: polyethylene glycoL 3350 17 GM POWD.PACK PO ×2 (09:15→21:50)
[2023-02-05] MEDS: Loratadine 10 MG TABLET PO (09:15)
[2023-02-05] MEDS: Docusate Sodium 100 MG CAPSULE PO ×2 (09:15→21:51)
[2023-02-05] MEDS: Famotidine 20 MG TABLET PO ×2 (09:15→21:51)
[2023-02-05] MEDS: 0.9 % Sodium Chloride Flush 3 ML SYRINGE IVFLUSH (09:16)
--- NOTE | 2023-02-05 10:40 | MHC.CM.PN ---
EMR reviewed and per MD rounds, pt not medically cleared for D/C as he is not yet improved with his COPD exacerbation and continues with shortness of breath on minimal exertion. CM will continue to follow.
[2023-02-05] MEDS: Lactulose 20 GM/30 ML SOLUTION PO (14:27)
--- NOTE | 2023-02-05 17:31 | HO.PM.IMPN ---
Subjective Subjective Date of Service: 02/05/23 Interval History: COPD exacerbation , constipation Review of Systems Shortness of breath seems similar and no improvement Denies any chest pain Still feel constipated Physical Exam Vital Signs: Vital Signs: Last Vital Signs Temp 98.9 F 02/05/23 15:05 Pulse 88 02/05/23 15:46 Resp 20 02/05/23 15:46 BP 119/71 02/05/23 15:05 Pulse Ox 91 L 02/05/23 15:05 O2 Del Method Nasal Cannula 02/05/23 15:05 O2 Flow Rate 4 02/05/23 11:55 Oxygen Flow Rate 4 02/02/23 21:53 BMI result Body Mass Index 23.7 ? Appearance: Alert.? Oriented X3.?sob cvs: rrr, [id number] . res: air entry diminsed ,has exp wheezing abd: no rebound or guarding ,nt, bs present. ext pulses present , no cyanosis . neuro: axo3 , nonfocal. Objective Data Active Medications Acetaminophen (Acetaminophen 325 Mg Tablet) 650 mg PO Q6H PRN PRN Reason: Pain, Mild (Pain Scale 1-3) Last Admin: 02/03/23 03:02 Dose: 650 mg Documented By: MADISON Albuterol/Ipratropium (Albuterol/Iprat 2.5/0.5mg 3 Ml Ampul.Neb) 3 ml INHALE RQ4H WHILE AWAKE [facility] Last Admin: 02/05/23 15:44 Dose: 3 ml Documented By: BUTCH Albuterol/Ipratropium (Albuterol/Iprat 2.5/0.5mg 3 Ml Ampul.Neb) 3 ml INHALE Q3H PRN PRN Reason: sob Last Admin: 02/05/23 03:46 Dose: 3 ml Documented By: VINNIE Bisacodyl (Bisacodyl 10 Mg Supp.Rect) 10 mg TN DAILY [facility] Last Admin: 02/05/23 16:32 Dose: Not Given Documented By: OFELIA Non-Admin Reason: Patient Refused Docusate Sodium (Docusate Sodium 100 Mg Capsule) 100 mg PO BID [facility] Last Admin: 02/05/23 09:15 Dose: 100 mg Documented By: OFELIA Enoxaparin Sodium (Enoxaparin Sodium 40 Mg/0.4 Ml Syringe) 40 mg SUBCUT BEDTIME [facility] Last Admin: 02/04/23 20:37 Dose: 40 mg Documented By: GENNY Famotidine (Famotidine 20 Mg Tablet) 20 mg PO BID [facility] Last Admin: 02/05/23 09:15 Dose: 20 mg Documented By: OFELIA Guaifenesin (Guaifenesin 100 Mg/5 Ml Liquid) 10 ml PO Q4H PRN PRN Reason: Cough Azithromycin 500 mg/ Sodium (Chloride) 250 mls @ 125 mls/hr IV Q24H [facility] Last Infusion: 02/04/23 23:53 Dose: 0 mls/hr Documented By: GENNY Loratadine (Loratadine 10 Mg Tablet) 10 mg PO DAILY [facility] Last Admin: 02/05/23 09:15 Dose: 10 mg Documented By: OFELIA Melatonin (Melatonin 3 Mg Tablet) 6 mg PO BEDTIME PRN PRN Reason: Insomnia Last Admin: 02/03/23 20:57 Dose: 6 mg Documented By: ALESSANDRO Methylprednisolone Sodium Succinate (Methylprednisolone Sod Succ 40 Mg/Ml Vial) 40 mg IVPUSH Q12H [facility] Last Admin: 02/05/23 12:43 Dose: 40 mg Documented By: OFELIA Ondansetron HCl (Ondansetron Hcl 4 Mg/2 Ml Vial) 4 mg IVPUSH Q8H PRN PRN Reason: Nausea and Vomiting Pharmacy Consult (Consult Rx Perform Med Rec) 1 each MISCELLANE ONCE PRN PRN Reason: Consult order Polyethylene Glycol (Polyethylene Glycol 3350 17 Gm Powd.Pack) 17 gm PO BID [facility] Last Admin: 02/05/23 09:15 Dose: 17 gm Documented By: OFELIA Sodium Chloride (0.9 % Sodium Chloride Flush 3 Ml Syringe) 3 ml IVFLUSH QSHIFT [facility] Last Admin: 02/05/23 16:50 Dose: Not Given Documented By: OFELIA Non-Admin Reason: Previously Administered Labs 02/03/23 06:47 02/03/23 06:47 Labs: Laboratory Results - last 24 hr 02/05/23 02/05/23 08:32 14:30 VBG pH 7.47 H VBG pCO2 44 VBG pO2 85 VBG HCO3 32 H VBG O2 Saturation 98.0 VBG Base Excess 7.6 Respiratory Panel Garcia Cancelled Adenovirus (Rapid PCR) Cancelled B.pert (TEM-PCR) Cancelled B.parapertussis DNA PCR Cancelled C. pneumoniae DNA (PCR) Cancelled Coronavirus OC43 (PCR) Cancelled Coronavirus HKU1 (PCR) Cancelled Coronavirus 229E (PCR) Cancelled Coronavirus NL63 (PCR) Cancelled Human Metapneumovir PCR Cancelled Influenza A (RT-PCR) Cancelled Influenza B (RT-PCR) Cancelled M. pneumoniae (PCR) Cancelled Parainfluenza 1 (PCR) Cancelled Parainfluenza 2 (PCR) Cancelled Parainfluenza 3 (PCR) Cancelled Parainfluenza 4 (PCR) Cancelled RSV (PCR) Cancelled Entero/Rhino (PCR) Cancelled SARS-CoV-2 RNA (RT-PCR) Cancelled Assessment and Plan (1) COPD (chronic obstructive pulmonary disease): Status: Acute (2) COPD exacerbation: Status: Acute (3) Constipation: Status: Acute Plan 52-year-old male with pertinent history of COPD not on home oxygen, tobacco use disorder, major depressive disorder who presents to the emergency department for evaluation of dyspnea. Acute hypoxemic respiratory failure due to Acute exacerbation of COPD.? Monitor oxygen saturation and wean as tolerated, maintain oxygen saturation greater than 88% still sob [facility] mininmal excersion continue supplemental oxygen.? Scheduled and p.r.n. DuoNebs.? Initiating systemic steroids.? Azithromycin for pleiotropic effect.? ? Tobacco use disorder.? Counseled regarding cessation.? Patient refused nicotine patch. ? Major depressive disorder/posttraumatic stress disorder.? Patient would like pharmacologic treatment while he is in the hospital.? Consulting psych, appreciate assistance Constipation: Added bowel regimen. anxiety-added psych DVT prophylaxis:? Lovenox Regular diet inpatient need:Acute hypoxemic respiratory failure due to COPDexacerbation -not imporving yet-needs nebs ,steriods ,antibiotics ,suppl oxygen.? Time Spent With Patient Time: Total time managing care of this patient today ____ minutes. Quality Stroke Does the patient have a stroke diagnosis?: No VTE Prior VTE?: No VTE Risk Level:: Medical - moderate - high VTE Device Contraindication: Treatment Not Indicated VTE Drug Contraindication: N/A - Med Ordered
[2023-02-05] MEDS: Milk of Magnesia 30 ML ORAL.SUSP PO (18:46)
[2023-02-05] MEDS: Enoxaparin Sodium 40 MG/0.4 ML SYRINGE SUBCUT (21:50)
[2023-02-05] MEDS: Azithromycin 500 MG in 0.9 % Sodium Chloride 250 ML 125 MG IV (21:51)
[2023-02-05] MEDS: guaiFENesin 100 MG/5 ML LIQUID 10 ML PO (21:51)
[2023-02-05] MEDS: Zolpidem Tartrate 5 MG TABLET PO (21:51)
[2023-02-06] VITALS (9 sets, daily range): BP systolic 119–131; BP diastolic 77–80; PULSE 77–111; RESP 17–20; TEMP 36.6–36.9; O2SAT 89–93
[2023-02-06] MEDS: 0.9 % Sodium Chloride Flush 3 ML SYRINGE IVFLUSH ×3 (00:01→16:57)
[2023-02-06] MEDS: Albuterol/Iprat 2.5/0.5MG 3 ML AMPUL.NEB INHALE ×3 (08:09→16:40)
[2023-02-06] MEDS: polyethylene glycoL 3350 17 GM POWD.PACK PO (08:32)
[2023-02-06] MEDS: Famotidine 20 MG TABLET PO (08:32)
[2023-02-06] MEDS: Docusate Sodium 100 MG CAPSULE PO (08:32)
[2023-02-06] MEDS: bisacodyL 10 MG SUPP.RECT PR (08:32)
[2023-02-06] MEDS: Loratadine 10 MG TABLET PO (08:32)
[2023-02-06] MEDS: methylPREDNISolone Sod Succ 40 MG/ML VIAL IVPUSH (08:32)
[2023-02-06 08:48] LABS: Adenovirus PCR Not Detected (Not Detect.); Bordetella parapertussis PCR Not Detected (Not Detect.); Bordetella pertussis PCR Not Detected (Not Detect.); Chlamydia pneumoniae PCR Not Detected (Not Detect.); Coronavirus 229E PCR Not Detected (Not Detect.); Coronavirus HKU1 PCR Not Detected (Not Detect.); Coronavirus NL63 PCR Not Detected (Not Detect.); Coronavirus OC43 PCR Not Detected (Not Detect.); Human metapneumovirus PCR Not Detected (Not Detect.); Influenza A PCR Not Detected (Not Detect.); Influenza B PCR Not Detected (Not Detect.); Mycoplasma pneumoniae PCR Not Detected (Not Detect.); Parainfluenza 1 PCR Not Detected (Not Detect.); Parainfluenza 2 PCR Not Detected (Not Detect.); Parainfluenza 3 PCR Not Detected (Not Detect.); Parainfluenza 4 PCR Not Detected (Not Detect.); RSV PCR Not Detected (Not Detect.); Rhino/Enterovirus PCR Not Detected (Not Detect.); SARS-CoV-2 PCR Not Detected (Not Detect.)
--- NOTE | 2023-02-06 10:30 | MHC.CM.PN ---
EMR reviewed and per MD rounds, pt is not medically cleared for D/C with continued shortness of breath. CM will continue to follow for D/C.
[2023-02-06] MEDS: Simethicone 80 MG TAB.CHEW PO (13:13)
[2023-02-06] MEDS: Sodium Phosphate,Mono-Dibasic 133 ML ENEMA PR (15:22)
--- NOTE | 2023-02-06 16:18 | MHC.CM.PN ---
Per pt medically cleared for D/C home today with no services, pt has his own transportation.
--- NOTE | 2023-02-06 16:51 | P.DS_ITS ---
DS: Providers Provider Date of Service: 02/06/23 Date of admission: 02/03/23 00:08 Date of discharge: 02/06/23 Primary care physician: None Physician Consults: 02/03/23 00:27 Consult to Psychiatry Routine Consulting Provider: Psych Covering Reason for consultation: MDD Attending physician on discharge: Jolene Nascimento Discharging clinician: Jolene Nascimento DS: Diagnosis Discharge Diagnosis (1) COPD (chronic obstructive pulmonary disease): Status: Acute (2) COPD exacerbation: Status: Acute (3) Constipation: Status: Acute DS: Summary Hospital Course Hospital Course: 52-year-old male with pertinent history of COPD not on home oxygen, tobacco use disorder, major depressive disorder who presents to the emergency department for evaluation of dyspnea.? Patient states that started 48 hours prior to presentation.? He has been having nonproductive cough and wheezing.? The dyspnea is worse with exertion.? Patient tried his home inhaler without any relief.? Patient called EMS who found him to be satting 84% on room air.? Does endorse us e of cigarettes.? He denies fever, chills, palpitations, chest discomfort, abdominal pain, changes in urinary or bowel habits. In the emergency department, patient was found to be hypoxemic and requiring 4 L supplemental oxygen Hospital course: Patient was admitted for acute hypoxemic respiratory failure secondary to COPD exacerbation, possible acute bronchitis-patient started on IV steroids, nebs, antibiotics seems to be improved. Going home with p.o. antibiotics and also started on Breo. Patient was strongly advised to follow up outpatient with PCP and hopefully will arrange PCP appointment outpatient. Checked for home oxygen evaluation-patient does not qualify. Constipation: Patient was strongly advised to eat a high-fiber diet, also added laxatives p.r.n. for constipation. Patient constipation seems to be improving with the laxatives, reports passing bowel, tolerating diet, no abdominal pain. Above management discussed the patient detail length he understand in agreement with the above plan, time spent 50 minute. Time Spent with Patient Time attestation: Total time managing care of this patient today ____ minutes. Discharge coordination time: Greater than 30 minutes Quality: Safe Use of Opioids Does Pt have an Active Cancer Diagnosis on the Problem List?: No Quality: Stroke Does the patient have a stroke diagnosis?: No Physical Exam Vital Signs: Vital Signs: Last Vital Signs Temp 98.4 F 06/02/23 15:50 Pulse 101 H 02/06/23 16:42 Resp 20 02/06/23 16:42 BP 121/80 02/06/23 15:50 Pulse Ox 91 L 02/06/23 15:50 O2 Del Method Room Air 02/06/23 15:50 O2 Flow Rate 4 02/06/23 11:07 Oxygen Flow Rate 4 02/02/23 21:53 BMI result Body Mass Index 23.7 Appearance: Alert.? Oriented X3.? Eyes: Pupils equal, round and reactive to light.? Sclera nonicteric.? ENT: Pharynx normal.? Moist mucous membranes. cvs: rrr, [id number] . res: Air entry fair, no wheezing. abd: no rebound or guarding ,nt, bs present. ext pulses present , no cyanosis. neuro: axo3 , nonfocal. DS: Data Data Completed and Pending Labs on day of discharge: Laboratory Results - last 24 hr 02/05/23 17:35 Respiratory Panel Garcia See Note Adenovirus (Rapid PCR) Not Detected B.pert (TEM-PCR) Not Detected B.parapertussis DNA PCR Not Detected C. pneumoniae DNA (PCR) Not Detected Coronavirus OC43 (PCR) Not Detected Coronavirus HKU1 (PCR) Not Detected Coronavirus 229E (PCR) Not Detected Coronavirus NL63 (PCR) Not Detected Human Metapneumovir PCR Not Detected Influenza A (RT-PCR) Not Detected Influenza B (RT-PCR) Not Detected M. pneumoniae (PCR) Not Detected Parainfluenza 1 (PCR) Not Detected Parainfluenza 2 (PCR) Not Detected Parainfluenza 3 (PCR) Not Detected Parainfluenza 4 (PCR) Not Detected RSV (PCR) Not Detected Entero/Rhino (PCR) Not Detected SARS-CoV-2 RNA (RT-PCR) Not Detected Imaging Chest x-ray: Radiologist's impression: ITS Impressions Chest X-Ray 02/02/23 22:43 IMPRESSION: Hyperinflated lungs with peribronchial thickening. KUB X-Ray 02/03/23 00:11 IMPRESSION: Unremarkable examination. Chest X-Ray 02/05/23 08:50 IMPRESSION: No acute cardiopulmonary process. Discharge Plan Discharge Anticipated Discharge Date/Time: 02/06/23 16:38 Patient Disposition: Home, Self-Care Discharge Diagnosis: COPD exacerbation, constipation Referrals: Sandie Arias MD [Physician] - 09/23/23 2:45 pm (You have a new patient appointment scheduled. Call [facility] to change insurance plan to [facility]. pcp office doesn't take current insurance plan. Call office with any questions [phone]) Discharge Medications: New polyethylene glycol 3350 17 gram Powder In Packet 17 g PO BID PRN (Reason: constipation) Qty: 30 0RF famotidine 20 mg Tablet 20 mg PO BID Qty: 60 0RF docusate sodium 100 mg Capsule 100 mg PO BID Qty: 30 0RF guaifenesin 100 mg/5 mL Liquid 10 ml PO Q4H PRN (Reason: Cough) Qty: 1 0RF fluticasone furoate-vilanterol [Breo Ellipta] 100-25 mcg/dose Blister With Device 1 puff inhalation RDAILY Qty: 1 0RF azithromycin 250 mg tablet 250 mg PO DAILY 3 Days Qty: 3 0RF Continued ibuprofen 200 mg Tablet 200 mg PO Q6H PRN (Reason: Pain, Moderate) albuterol 90 mcg/actuation Aerosol 90 mcg INHALATION Q6-8H PRN (Reason: Pain, Moderate) Discharge Orders: Discharge Order (Routine); Ordered 02/06/23 Ordered By: Jolene Nascimento Diet: Advance to usual diet Activity on Discharge: As tolerated Stand Alone Forms: Patient Portal Discharge page Care Plan Goals: Patient was admitted for acute hypoxemic respiratory failure secondary to COPD exacerbation, possible acute bronchitis-patient started on IV steroids, nebs, antibiotics seems to be improved. Going home with p.o. antibiotics and also started on Breo. Patient was strongly advised to follow up outpatient with PCP and hopefully will arrange PCP appointment outpatient. Checked for home oxygen evaluation-patient does not qualify. Constipation: Patient was strongly advised to eat a high-fiber diet, also added laxatives p.r.n. for constipation. Health Concerns: As above. Plan of Treatment: As above. Assessment: As above..
--- NOTE | 2023-02-06 17:55 | PC.NURSE ---
patient is questioning if he should be taking Prednisone at home ,Dr. Nascimento notified
== END 2023-02-06 18:34 | disposition home or self-care (01) | DRG 140 ==
LOC: HO.ED 02-03 00:05 → HO.EDOVER 02-03 00:13 → HO.IMC 02-03 01:41
PROVIDERS: Physician Assistant; Admitting Provider Student in an Organized Health Care Education/Training Program; Emergency Provider Emergency Medicine; Visit Provider Internal Medicine
DX: J44.1 Chronic obstructive pulmonary disease with (acute) exacerbation (principal); J96.01 Acute respiratory failure with hypoxia; F41.9 Anxiety disorder, unspecified; F32.9 Major depressive disorder, single episode, unspecified; J44.0 Chronic obstructive pulmonary disease with (acute) lower respiratory infection; J20.9 Acute bronchitis, unspecified; F43.10 Post-traumatic stress disorder, unspecified; K59.00 Constipation, unspecified; F17.210 Nicotine dependence, cigarettes, uncomplicated; Z20.822 Contact with and (suspected) exposure to COVID-19; Z71.6 Tobacco abuse counseling; Z79.51 Long term (current) use of inhaled steroids; Z79.899 Other long term (current) drug therapy
CPT/HCPCS: 36415; 71045; 74018; 80048; 82803; 84484; 85025; 87502; 87633; 87635; 93005; 94640; 97161; 99285; J0456; J1650; J2060; J2920; J3475

== ENCOUNTER 2023-04-22 19:06 | Emergency (ER) | payer MEDICAID, SELFPAY ==
[2023-04-22 19:41] VITALS: BP 126/79; PULSE 113; RESP 16; TEMP 37.2; O2SAT 91; BMI 25.5
--- NOTE | 2023-04-22 20:50 | ED_ITS ---
HPI - Dental/Oral General Chief complaint: Dental/Oral Stated complaint: infection, difficulty breathing Time Seen by Provider: 04/22/23 20:17 Source: patient Mode of arrival: ambulatory Limitations: no limitations History of Present Illness HPI Narrative: Patient comes in the emergency room complaining of right mandibular tooth abscess. Patient states that he chipped a tooth, went to see his dentist, prescribed amoxicillin 2 days ago. Patient states that the pain and the swelling keep waiting worse. Denies any trouble swallowing. Patient states prior to arrival, the abscess in the gum popped and drained quite a bit of purulent material. Related Data Home Medications Medication Instructions Recorded Confirmed albuterol 90 mcg/actuation aerosol 90 mcg inhalation Q6-8H PRN Pain, 02/02/23 02/02/23 inhaler Moderate ibuprofen 200 mg tablet 200 mg PO Q6H PRN Pain, Moderate 02/02/23 02/02/23 Previous Rx's Medication Instructions Recorded azithromycin 250 mg tablet 250 mg PO DAILY 3 days #3 tabs 02/06/23 docusate sodium 100 mg capsule 100 mg PO BID #30 caps 02/06/23 famotidine 20 mg tablet 20 mg PO BID #60 tabs 02/06/23 fluticasone furoate 100 1 puff inhalation RDAILY #1 ea 02/06/23 mcg-vilanterol 25 mcg/dose inhalation powder (Breo Ellipta) guaifenesin 100 mg/5 mL oral liquid 10 ml PO Q4H PRN Cough #1 mL 02/06/23 polyethylene glycol 3350 17 gram 17 g PO BID PRN constipation #30 ea 02/06/23 oral powder packet prednisone 20 mg tablet 40 mg PO DAILY #8 tabs 02/06/23 clindamycin HCl 300 mg capsule 300 mg PO TID 10 days #30 caps 04/22/23 ketorolac 10 mg tablet 10 mg PO TID PRN pain #10 tabs 04/22/23 oxycodone 5 mg tablet 5 mg PO TID PRN pain #10 tabs 04/22/23 Allergies Allergy/AdvReac Type Severity Reaction Status Date / Time No Known Allergies Allergy Verified 04/22/23 19:41 Review of Systems Review of Systems: Constitutional : No Weight loss, No Fever, No Chills, No Night Sweats, No Fatigue, No Malaise ENT/Mouth : Complaining of dental pain right mandibular side, No Hearing loss, No Ear Pain, No Nasal Congestion, No Sinus Pain, No Hoarseness, No sore throat, No Rhinorrhea, No Swallowing Difficulty Eyes: No Eye Pain, No Swelling, No Redness, No Foreign Body, No Discharge, No Vision Changes Cardiovascular : No Chest Pain, No SOB, No Dyspnea on Exertion, No Orthopnea, No Edema, No Palpitations Respiratory : No Cough, No Sputum, No Wheezing, No Smoke Exposure, patient states that he is due for his scheduled nebulization treatment Gastrointestinal : No Nausea, No Vomiting, No Diarrhea, No Constipation, No abdominal Pain, No Hematochezia, No Melena Genitourinary : no irregular bleeding, No Dysuria, No Urinary Frequency, No Hematuria, No Urinary Incontinence, No Urgency, No Flank Pain, No Urinary Flow Changes, No Hesitancy Musculoskeletal : No joint pain, No Myalgias, No Joint Swelling Skin : No Skin Lesions, No rash Neuro : No Weakness, No Numbness, No Paresthesias, No Loss of Consciousness, No Dizziness, No Headache Psych : No Anxiety/Panic, No Depression, No SI/HI/AH/VH, No Social Issues, Heme/Lymph: No Bruising, No Bleeding,No Lymphadenopathy Endocrine : No Polyuria, No Polydipsia, No Temperature Intolerance [facility] Past Medical History Medical History Cannabis use disorder COPD (chronic obstructive pulmonary disease) Major depressive disorder PTSD (post-traumatic stress disorder) Tobacco use disorder Social History Social History Household Members: Friend(s) Housing: Apartment Do you presently have visiting nurse or other home services: No Alcohol intake: never Patient Tobacco Use Status: Current everyday Tobacco user Tobacco use type: Cigarette e-Cigarette/Vaping Use: Never Used Second Hand Smoke Exposure: No Advance Directives: No Advance Directives Information Provided: Yes service: No Current occupational status: unemployed Physical Exam Vital Signs: Vital Signs: Last Vital Signs Temp 99 F 04/22/23 19:41 Pulse 113 H 04/22/23 19:41 Resp 16 04/22/23 19:41 BP 126/79 04/22/23 19:41 Pulse Ox 91 L 04/22/23 19:41 O2 Del Method Room Air 04/22/23 19:41 BMI result Body Mass Index 25.5 Const: Other: Appearance: Alert. Oriented X3. No acute distress. Eyes: Pupils equal, round and reactive to light. ENT: Pharynx normal. No pain to palpation under the tongue, no significant swelling under the chin. Patient does have a bit of swelling in the mandibular aspect, no cellulitis. There is swelling in the gum. However, there is no much more fluid to be drained at this time, seems that the abscess drained itself prior to arrival Neck: Normal inspection. Neck supple. No lymph nodes noted. No crepitus CVS: Normal heart rate and rhythm. Pulses normal. Normal S1 and S2 Respiratory: No respiratory distress. Breath sounds normal. No Wheezing. No rales Abdomen: Soft and nontender. No rigidity. No distention. Skin: Skin warm and dry. Normal skin color. Normal skin turgor. Extremities: No lower extremity edema. No Lacerations. No Rash Neuro: Oriented X 3. No motor deficit. No sensory deficit. Moving all extremities. No slurred speech. CN 2 through 12 grossly intact Psych: calm, cooperative, normal affect Medical Decision Making Medical Decision Making MDM Narrative: -patient does not have any fever, normal blood pressure. Patient had been given medication for pain and also change his antibiotics to clindamycin. -patient is due for his scheduled nebulization treatments, we will go ahead an order a neb treatment. Differential Diagnosis Differential Diagnoses: The differential diagnosis associated with the presentation includes (Cracked tooth, abscess, dental pain) Discharge Plan Discharge Clinical Impression: Abscess, dental Patient Disposition: Home, Self-Care Instructions: Dental Abscess (ED) Additional Instructions: Please follow-up with your primary care physician and with her dentist tomorrow. If you have any worsening or new symptoms, please return to the emergency room or call 911 Prescriptions: New clindamycin HCl 300 mg capsule 300 mg PO TID 10 Days Qty: 30 0RF ketorolac 10 mg tablet 10 mg PO TID PRN (Reason: pain) Qty: 10 0RF Rx Instructions: Do not use this medication with naproxen, ibuprofen, only Tylenol or oxycodone if needed oxycodone 5 mg tablet 5 mg PO TID PRN (Reason: pain) Qty: 10 0RF Rx Instructions: Partial Fill upon patient request. No Action ibuprofen 200 mg Tablet 200 mg PO Q6H PRN (Reason: Pain, Moderate) albuterol 90 mcg/actuation Aerosol 90 mcg INHALATION Q6-8H PRN (Reason: Pain, Moderate) polyethylene glycol 3350 17 gram Powder In Packet 17 g PO BID PRN (Reason: constipation) Qty: 30 0RF famotidine 20 mg Tablet 20 mg PO BID Qty: 60 0RF docusate sodium 100 mg Capsule 100 mg PO BID Qty: 30 0RF guaifenesin 100 mg/5 mL Liquid 10 ml PO Q4H PRN (Reason: Cough) Qty: 1 0RF fluticasone furoate-vilanterol [Breo Ellipta] 100-25 mcg/dose Blister With Device 1 puff inhalation RDAILY Qty: 1 0RF azithromycin 250 mg tablet 250 mg PO DAILY 3 Days Qty: 3 0RF prednisone 20 mg tablet 40 mg PO DAILY Qty: 8 0RF
[2023-04-22] MEDS: Albuterol Sulfate (0.083%) 2.5 MG/3 ML VIAL.NEB 5 MG INHALE (20:55)
[2023-04-22] MEDS: Ketorolac Tromethamine 60 MG/2 ML VIAL IM (20:58)
[2023-04-22] MEDS: Clindamycin HCL 300 MG CAPSULE PO (20:58)
[2023-04-22 20:59] VITALS: PULSE 113; RESP 18; O2SAT 91
--- NOTE | 2023-04-22 21:02 | PC.NURSE ---
pt medicated per NOV, reporting 8/10 facial pain, chest tightness, resp at bedside for breathing treatment.
[2023-04-22] MEDS: Albuterol Sulfate 90 MCG 8 GM INHALER 2 PUFF INHALE (21:15)
== END 2023-04-22 21:20 | disposition home or self-care (01) ==
PROVIDERS: Emergency Provider Emergency Medicine
DX: K04.7 Periapical abscess without sinus (principal); J44.9 Chronic obstructive pulmonary disease, unspecified; F17.210 Nicotine dependence, cigarettes, uncomplicated; Z79.899 Other long term (current) drug therapy
CPT/HCPCS: 94640; 96372; 99283; 99284; J1885

== ENCOUNTER 2025-06-01 16:43 | Inpatient (IN) | payer MEDICAID, SELFPAY ==
[2025-06-01] VITALS (12 sets, daily range): BP systolic 113–148; BP diastolic 63–89; PULSE 100–118; RESP 20–29; TEMP 36.8–37.3; O2SAT 80–96; BMI 23.7
--- NOTE | ~2025-06-01 | XR_ITS ---
CLINICAL HISTORY: sob 1 view chest x-ray Comparison: CR/SR - XR CHEST 2 VIEWS - 02/05/23 08:41 EDT Findings: No consolidation or effusion. Normal size heart. No acute fracture. IMPRESSION: 1. No acute findings. This document has been electronically signed by: Andrey Peterson MD on 06/01/2025 18:45:06
--- NOTE | 2025-06-01 16:53 | ED_ITS ---
[facility] - General Adult General Chief complaint: Dyspnea Stated complaint: Difficult breathing Time Seen by Provider: 06/01/25 16:48 Source: patient Mode of arrival: ambulatory Limitations: no limitations History of Present Illness ED Provider: Dr. Byrnes HPI narrative: 54-year-old male history of COPD, tobacco use presented hospital today for shortness of breath. EMS found the patient was sitting on 80% on room air. Patient was placed on BiPAP and brought to the ER. Patient has been using nebulizer at home without any alleviation. History is limited due to patient's shortness of breath. Related Data Home Medications ?Medication ?Instructions ?Recorded ?Confirmed albuterol 90 mcg/actuation aerosol 90 mcg inhalation Q 6-8H PRN Pain, 02/02/23 02/02/23 inhaler Moderate ibuprofen 200 mg tablet 200 mg PO Q6H PRN Pain, Mode rate 02/02/23 02/02/23 Previous Rx's ?Medication ?Instructions ?Recorded azithromycin 250 mg tablet 250 mg PO DAILY 3 days #3 t abs 02/06/23 docusate sodium 100 mg capsule 100 mg PO BID #30 caps 02/06/23 famotidine 20 mg tablet 20 mg PO BID #60 tabs fluticasone furoate 100 1 puff inhalation RDAILY #1 ea 02/06/23 mcg-vilanterol 25 mcg/dose inhalation powder (Breo Ellipta) guaifenesin 100 mg/5 mL oral liquid 10 ml PO Q4H PRN C ough #1 mL 02/06/23 polyethylene glycol 3350 17 gram 17 g PO BID PRN const ipation #30 ea 02/06/23 oral powder packet prednisone 20 mg tablet 40 mg (2 x 20 mg) PO DAILY # 8 tabs 02/06/23 clindamycin HCl 300 mg capsule 300 mg PO TID 10 days # 30 caps 04/22/23 ketorolac 10 mg tablet 10 mg PO TID PRN pain #10 ta bs 04/22/23 oxycodone 5 mg tablet 5 mg PO TID PRN pain #10 tab s 04/22/23 Allergies Allergy/AdvReac Type Severity Reaction Status Date / Time No Known Allergies Allergy Verified 06/01/25 16:54 Review of Systems 2 Review of Systems: Review of system limited due to shortness of breath. PMFSH Past Medical History PMFSH Narrative: Medical history as mentioned in [facility] Medical History Cannabis use disorder COPD (chronic obstructive pulmonary disease) Major depressive disorder PTSD (post-traumatic stress disorder) Tobacco use disorder Social History Social History Household Members: Friend(s) Housing: Apartment Do you presently have visiting nurse or other home services: No Alcohol intake: never Patient Tobacco Use Status: Current everyday Tobacco user Tobacco use type: Cigarette Smoked in Last 30 Days: Yes e-Cigarette/Vaping Use: Never Used Second Hand Smoke Exposure: No Substance Use Type: Marijuana Advance Directives: No Advance Directives Information Provided: Yes service: No Current occupational status: unemployed Physical Exam ED Exam Exam: General: Pleasant, no distress, interacting appropriately Head: Normacephalic, atraumatic ENT: oral mucosa moist, neck supple, no tracheal deviation Cardiovascular: Tachycardic rate, regular rhythm, no murmurs, rubbing, gallops Respiratory: Appears to be tachypneic, diminished lung sounds bilaterally Gastrointestinal: Soft, non distended, non tender, non guarding Extremities: No limb pain or swelling, no calf tenderness Neurological: Awake and alert, no facial droop noted Skin: Warm and dry Psychiatric: Appropriate mood and thoughts Vital Signs: Vital Signs - 24 hr 06/01/25 16:49 06/01/25 17:02 06/01/25 19:52 Temperature 98.2 F Pulse Rate 114 H 116 H 100 Respiratory Rate 25 H 24 H 25 H Blood Pressure 140/89 H 113/80 Pulse Oximetry 96 93 Oxygen Delivery Method Nasal Cannula Oxygen Flow Rate 06/01/25 20:17 06/01/25 20:23 06/01/25 20:27 Temperature 99.1 F Pulse Rate 104 H 100 Respiratory Rate 25 H 24 H Blood Pressure 126/82 Pulse Oximetry 90 L Oxygen Delivery Method Oxygen Flow Rate 06/01/25 20:46 06/01/25 20:53 06/01/25 21:21 Temperature 98.5 F Pulse Rate 110 H 116 H Respiratory Rate 24 H 24 H Blood Pressure 115/71 Pulse Oximetry 89 L Oxygen Delivery Method Oxygen Flow Rate 06/01/25 21:22 06/01/25 21:52 Temperature Pulse Rate 118 H 103 H Respiratory Rate 29 H 22 H Blood Pressure 121/71 115/63 Pulse Oximetry 91 L 91 L Oxygen Delivery Method Nasal Cannula Nasal Cannula Oxygen Flow Rate 3 3 BMI result Body Mass Index 23.7 Medications Administered Generic Name Dose Route Start Last Admin Trade Name Freq PRN Reason Stop Dose Admin Azithromycin 500 mg 06/01/25 23:00 06/01/25 22:54 Azithromycin 500 Mg Tablet PO 500 mg Q24H GABY Administration Enoxaparin Sodium 40 mg 06/01/25 23:00 06/01/25 22:56 Enoxaparin Sodium 40 Mg/0.4 Ml Syringe SUBCUT 40 mg Q24H GABY Administration Sodium Chloride 3 ml 06/02/25 00:00 06/02/25 00:41 0.9 % Sodium Chloride Flush 3 Ml Syringe IVFLUSH Not Given QSHIFT GABY Discontinued Medications Generic Name Dose Route Start Last Admin Trade Name Bestq PRN Reason Stop Dose Admin Acetaminophen 975 mg 06/01/25 18:58 06/01/25 20:21 Acetaminophen 325 Mg Tablet PO 06/01/25 18:59 975 mg ONCE ONE Administration Albuterol Sulfate 5 mg/ 0 mg 06/01/25 17:01 06/01/25 17:03 Albuterol/Ipratropium 3 ml INHALE 06/01/25 17:02 2.5 each ONCE ONE Administration Albuterol Sulfate 5 mg/ 0 mg 06/01/25 20:26 06/01/25 20:30 Albuterol/Ipratropium 3 ml INHALE 06/01/25 20:27 1 each ONCE ONE Administration Magnesium Sulfate 2 gm in 50 mls @ 50 mls/hr 06/01/25 16:50 06/01/25 17:42 Magnesium Sulfate/H2o IV 06/01/25 17:49 Infused ONCE ONE Infusion Levalbuterol HCl 2.5 mg 06/01/25 20:42 06/01/25 20:46 Levalbuterol Hcl 1.25 Mg/3 Ml Vial.Neb INHALE 06/01/25 20:43 2.5 mg ONCE ONE Administration Methylprednisolone Sodium Succinate 125 mg 06/01/25 16:51 06/01/25 17:00 Methylprednisolone Sod Succ 125 Mg/2 Ml Vial IVPUSH 06/01/25 16:52 125 mg ONCE ONE Administration Medical Decision Making Medical Decision Making MDM Narrative: 54-year-old male history of COPD presented hospital today for respiratory distress respiratory failure. Patient was weaned off CPAP and placed on nasal cannula. He does appear to be improving slightly. We will plan to give patient nebulizer treatment [facility]. IV magnesium will be given the patient IV Solu-Medrol will be given to the patient We will plan to obtain basic lab work including chest x-ray we will plan to obtain VBG as well. I suspect this is COPD exacerbation. Lab work shows slight leukocytosis however chest x-ray did not show any sign of pneumonia. The patient is able to to stay off BiPAP at this time. Oxygen well on nasal cannula. We attempted to ambulate the patient however he decides to the mid 80s. Another breathing treatment was given to the patient does time. We then attempted to ambulate the patient warm or time however he remains hypoxic upon ambulation. Patient at baseline does not normally use oxygen. At this time we will plan to admit patient for COPD exacerbation and hypoxic respiratory failure. Patient does appear much more improved than he originally presented. Differential Diagnosis Differential Diagnoses: The differential diagnosis associated with the presentation includes COPD, pneumonia, pneumothorax, bronchitis Lab Data MDM Lab Attestation statement: I reviewed the patient's lab results. 06/01/25 16:59 06/01/25 16:59 Labs: Lab Results 06/01/25 06/01/25 06/01/25 Range/Units 16:59 17:03 20:20 WBC 12.4 H (4.8-10.8) X10*3/uL RBC 4.91 (4.60-5.80) X10*6/uL Hgb 16.6 (14.0-18.0) g/dl Hct 48.7 (42.0-52.0) % MCV 99.2 H (80.0-98.0) fL MCH 33.8 H (27.0-33.0) pg MCHC 34.1 (31.0-36.0) g/dl RDW 12.3 (11.0-16.0) % Plt Count 257 (160-400) X10*3/uL MPV 9.5 (9.4-12.4) fL Immature Gran % (Auto) 0.5 H (0.0-0.4) % Neut % (Auto) 75.6 H (45-73) % Lymph % (Auto) 10.7 L (20-40) % Barry % (Auto) 11.9 H (2-11) % Eos % (Auto) 1.1 (0-4) % Baso % (Auto) 0.2 (0-2) % Lymph # (Auto) 1.3 (1.2-4.9) X10*3/uL Barry # (Auto) 1.5 H (0.1-1.2) X10*3/uL Eos # (Auto) 0.1 (0.0-0.4) X10*3/uL Baso # (Auto) 0.0 (0.0-0.2) X10*3/uL Abs Immat Gran (auto) 0.06 H (0.00-0.03) X10*3/uL Absolute Neuts (auto) 9.4 H (2.0-8.3) x10*3/uL Absolute Nucleated RBC 0.000 (0.0-0.012) X10*3/uL Nucleated RBC % (auto) 0.0 (0.0-0.2) /100WBC VBG pH 7.35 (7.32-7.43) VBG pCO2 51 mmHg VBG pO2 85 mmHg VBG HCO3 28 H (22-26) mmol/L VBG O2 Saturation 95.0 % VBG Base Excess 1.9 mmol/L Sodium 144 (135-145) mmol/L Potassium 4.2 (3.3-5.1) mmol/L Chloride 107 (96-108) mmol/L Carbon Dioxide 28 (22-29) mmol/L Anion Gap 13 (12-20) BUN 8 L (9-16) mg/dL Creatinine 0.64 (0.5-1.4) mg/dL Estim Creat Clear Calc 150.8 Estimated GFR > 60 Random Glucose 100 (60-115) mg/dL Calcium 9.0 (8.4-10.2) mg/dL Magnesium 2.1 (1.6-2.6) mg/dL COVID-19 ([facility]) Negative (Negative) COVID-19 Clin Com See Note Influenza Type A ([facility]ON) Negative (Negative) Influenza Type B ([facility]) Negative (Negative) Influenza A & B Note See Note Independent Interpretation I performed an independent interpretation of an: Plain X-Ray Radiology Impression Discussion of test interpretation with radiology: I have reviewed the radiologist's reading. Chronic Conditions COPD Critical Care Time Critical Care Time Critical Care Time: Yes Total Critical Care Time: 48 Attestation: Time is exclusive of separately billable procedures. Time includes: direct patient care, patient reassessment, coordination of patient care, interpretation of data (laboratory data, pulse oximetry, arterial blood gases and chest xrays), review of patient's medical records, medical consultation and documentation of patient care. Procedures excluded from critical care time: central intravenous line placement and electrocardiography. Discharge Plan Discharge Clinical Impression: COPD exacerbation, Acute hypoxic respiratory failure Patient Disposition: Admitted As Inpatient Interventions: Admission Worksheet (ED) Last Done: 06/02/25 00:23
[2025-06-01] MEDS: Magnesium Sulfate/H2O 2 GM/50 ML PIGGYBACK IV (17:00)
[2025-06-01 17:03] LABS: MANUAL DIFF FLAG NO
[2025-06-01] MEDS: Albuterol Sulfate 5 MG, Albuterol/Iprat 2.5/0.5MG 3 ML 3 ML INHALE ×2 (17:03→20:30)
[2025-06-01 17:06] LABS: Hematocrit 48.7 % (42.0-52.0); Hemoglobin 16.6 g/dl (14.0-18.0); Imm Gran Abs Auto 0.06 X10*3/uL (0.00-0.03); Imm Gran Pct Auto 0.5 % (0.0-0.4); Lymphocytes Absolute Auto 1.3 X10*3/uL (1.2-4.9); Mean Corpuscular HGB Conc 34.1 g/dl (31.0-36.0); Mean Corpuscular Hemoglobin 33.8 pg (27.0-33.0); Mean Corpuscular Volume 99.2 fL (80.0-98.0); NRBC Abs Auto 0.000 X10*3/uL (0.0-0.012); NRBC Pct Auto 0.0 /100WBC (0.0-0.2); Platelet Count 257 X10*3/uL (160-400); Red Blood Count 4.91 X10*6/uL (4.60-5.80); White Blood Count 12.4 X10*3/uL (4.8-10.8)
[2025-06-01 17:19] LABS: Anion Gap 13 (12-20); Blood Urea Nitrogen 8 mg/dL (9-16); Calcium 9.0 mg/dL (8.4-10.2); Carbon Dioxide 28 mmol/L (22-29); Chloride 107 mmol/L (96-108); Creatinine Clr Calc Pharmacy 150.8; Estimated Glomerular Filt Rate > 60; Magnesium 2.1 mg/dL (1.6-2.6); Potassium 4.2 mmol/L (3.3-5.1); Sodium 144 mmol/L (135-145)
[2025-06-01 17:34] LABS: VBG HCO3 28 mmol/L (22-26); VBG O2 % Saturation 95.0 %
[2025-06-01 17:34] LABS: Venous Blood Gas Refer to POC result
--- OUTSIDE RECORDS SUMMARY | 2025-06-01 20:02 | XMS_ITS | Encounter Summary ---
Author Organization [employer] Address [address] [place] [address] [address] [place] [address] Care Team Providers Care Senior International Tax Manager Name Role Phone Unavailable Primary Care Provider Unavailabl e Reason for Visit * Reason Onset Date Comments medication 05/08/2023 Encounter Details Date Type Department Care Team (Late st Contact Info) Description 05/08/2023 Telephone [facility] ADULT DENT[facility] [address] [place], [place] [phone] Eladio Kirk DDS [address] [place], [place] [phone] medication Social History Tobacco Use Types Packs/Day Years Used Date Smoking Tobacco: Former Cigarettes 0.3 0.5 Passive Smoke Exposure: Never Smokeless Tobacco: Former Alcohol Use Standard Drinks/Week Comments Defer 0 (1 standard drink = 0.6 oz pur e alcohol) Sex and Gender Information Value Date Recorded Sex Assigned at Male 04/21/2023 8:39 AM EDT Legal Sex Male 8:35 PM EDT Gender Identity Male 04/21/2023 8:39 AM EDT Sexual Orientation Choose not to disclose 2022 8:39 AM EDT documented as of this encounter Miscellaneous Notes * Telephone Encounter - Dalia Blanco - 05/08/2023 10:47 AM EDT Patient came in on 04/21 and was scripted antibiotics for an abscess and pain. The next day he had to go to the hospital because he swelling up even more and they put him on clindamyacin and cancelled out the amoxicillin. He is feeling better and less swollen but he still has some swelling with discomfort. He is looking to see if he needs to go back on an antibiotic to continue to control the infection. documented in this encounter Plan of Treatment Not on file documented as of this encounter Visit Diagnoses Not on filedocumented in this encounter
--- OUTSIDE RECORDS SUMMARY | 2025-06-01 20:02 | XMS_ITS | Clinical Summary ---
Author Organization [employer] Address [address] [place] [address] [address] [place] [address] Care Team Providers Care Near East Archeology Professor Name Role Phone Unavailable Primary Care Provider Unavailabl e Allergies No known active allergies Medications No known medications Active Problems Problem Noted Date Diagnosed Date Necrosis of dental pulp 06/11/2023 Dental abscess 04/21/2023 Dental caries 04/21/2023 Social History Tobacco Use Types Packs/Day Years Used Date Smoking Tobacco: Former Cigarettes 0.3 0.5 Passive Smoke Exposure: Never Smokeless Tobacco: Former Tobacco Cessation:Counseling Given: Not Answered Alcohol Use Standard Drinks/Week Comments Defer 0 (1 standard drink = 0.6 oz pur e alcohol) Sex and Gender Information Value Date Recorded Sex Assigned at Male 04/21/2023 8:39 AM EDT Legal Sex Male 8:35 PM EDT Gender Identity Male 04/21/2023 8:39 AM EDT Sexual Orientation Choose not to disclose 2022 8:39 AM EDT Last Filed Vital Signs Vital Sign Reading Time Taken Comments Blood Pressure 124/76 06/11/2023 2:41 PM EDT Pulse - - Temperature - - Respiratory Rate - - Oxygen Saturation - - Inhaled Oxygen Concentration - - Weight - - Height - - Body Mass Index - - Plan of Treatment Health Maintenance Due Date Last Done Comments CT Colonography 1971 Colonoscopy 1971 Colorectal Cancer Screening 1971 Dental Oral Exam 1971 Dental Prophylaxis 1971 Dental X-Ray: Bitewings 1971 Depression Screening 1971 FIT DNA/Cologuard 1971 FIT 1971 FOBT 1971 HIV Screening 1971 Lipid Panel 1971 SDOH Screening 1971 Sigmoidoscopy 1971 Disability Screening 1971 Alcohol/Substance Use Screening 1983 Hepatitis C Screening 11/18/1989 Hepatitis B Vaccines (1 of 3 - 19+ 3-dose series) 11/18/1990 Pneumococcal Vaccine: 50+ Ye ars (1 of 2 - PCV) 11/18/1990 Zoster Vaccines (1 of 2) 11/18/2021 DTaP/Tdap/Td Vaccines (2 - T d or Tdap) 11/09/2022 11/09/2012 Tobacco Screening 06/11/2024 06/11/2023 COVID-19 Vaccine (1 - 2023-2 5 season) 2025 Influenza Vaccine (#1) 2025 Dental X-Ray: Full Mouth 04/22/2026 04/21/2023 RSV Patients and Pa tients Aged 60 years or older (1 - 1-dose 75+ series) 11/18/2046 HIB Vaccines Aged Out No longer eligi ble based on patient's age to complete this topic HPV Vaccines Aged Out No longer eligi ble based on patient's age to complete this topic Hepatitis A Vaccines Aged Out No long er eligible based on patient's age to complete this topic IPV Vaccines Aged Out No longer eligi ble based on patient's age to complete this topic Meningococcal B Vaccine Aged Out No l onger eligible based on patient's age to complete this topic Meningococcal Vaccine Aged Out No delroy kyle eligible based on patient's age to complete this topic RSV under 20 months Aged Out No longe r eligible based on patient's age to complete this topic Rotavirus Vaccines Aged Out No longer eligible based on patient's age to complete this topic Procedures Procedure Name Priority Date/Time Associated Diagnosis Comments PANORAMIC RADIOGRAPHIC IMAGE Routine 04/21/2023 1:00 PM EDT from Last 3 Months or Most Recently Relevant to Health Maintenance Insurance [facility] MEDICAID STAND ADULT
--- OUTSIDE RECORDS SUMMARY | 2025-06-01 20:02 | XMS_ITS | Encounter Summary ---
Author Organization [employer] Address [address] [facility] [address] [place] [address] Care Team Providers Care Coordinator Of Evaluation Name Role Phone Unavailable Primary Care Provider Unavailabl e Reason for Visit * Reason Onset Date Comments script for infection 06/05/2023 Encounter Details Date Type Department Care Team (Late st Contact Info) Description 06/05/2023 Telephone [facility] [address] [place] [address] Eladio Kirk, DDS [address] [place] [address] script for infection Social History Tobacco Use Types Packs/Day Years [...] * Telephone Encounter - Dalia Blanco - 06/09/2023 3:05 PM EDT Patient picked up his script for antibiotic at pharmacy. He is concerned because he was a little worse this morning but is trying to give it a couple of days. His concern is that he has been on the antibiotic for a month now and is not feeling great and he's been waiting for the appt for a while now which has been scheduled for 07/02. Any insight on his concerns DR * Telephone Encounter - Dalia Blanco - 06/05/2023 3:32 PM EDT Patient called in because he was seen in April for an infection that has been recurring and statesthat he has been scripted antibiotics a coupe of times while waiting for ext appt. I don't see anything under medications being sent but he assures he has picked up clindamyacin, moutwash and pain mediation at the [facility] pharmacy. He is requesting another round of clindamyacin to be sent ot he [facility] pharmacy because he cannot make it here to [facility]. I informed patient that I would request the script but to also call us Thursday morning for possible appt scheduling. It states next appt was to be an evaluation to make a decision in the notes but patient wants the extraction DR documented in this encounter Plan of Treatment Not on file documented as of this encounter Visit Diagnoses Not on filedocumented in this encounter
--- NOTE | 2025-06-01 20:13 | PC.NURSE ---
Pt felt to weak to stand. Upon sitting up on the side of the bed pt dipped to 86% on RA. Reapplied 3LNC and pt took a few minutes to come back up to 89% on 3LNC
[2025-06-01 20:40] LABS: IDNOW Serial# 55D5AD1C
[2025-06-01 20:41] LABS: COVID-19 Test Negative (Negative)
[2025-06-01 20:45] LABS: IDNOW Serial# 58CA691E; Influenza B2 Negative (Negative)
--- NOTE | 2025-06-01 22:15 | PC.NURSE ---
Attempted second ambulation trial and pt too weak to walk. Was able to stand and oxygen went to 87% on RA.
--- NOTE | 2025-06-01 22:35 | P.HPHOSP_ITS ---
History of Present Illness Date of Service: 06/01/25 Chief Complaint: sob 54-year-old male with a past medical history of COPD, tobacco dependence, anxiety, depression, PTSD; presented to the hospital today with a chief complaint of shortness of breath. Patient reports over the past few days he has been having shortness of breath with cough. Denies any sputum production. Denies any fevers. Denies any sick contacts. Denies any chest pain or palpitations. Review of all other systems is negative except mentioned above ER course: Per ER team, patient noted to be short of breath, has bilateral wheezing; noted to be hypoxic with minimal activity dropped down to 86% on room air; placed on supplemental oxygen. Not in respiratory distress. Given Solu-Medrol, IV magnesium, nebulizers with improvement in respiratory status. Chest x-ray showed no acute cardiopulmonary process. [facility] Medical History Cannabis use disorder COPD (chronic obstructive pulmonary disease) Major depressive disorder PTSD (post-traumatic stress disorder) Tobacco use disorder Social History Household Members: Friend(s) Housing: Apartment Do you presently have visiting nurse or other home services: No Alcohol intake: never Patient Tobacco Use Status: Current everyday Tobacco user Tobacco use type: Cigarette Smoked in Last 30 Days: Yes e-Cigarette/Vaping Use: Never Used Second Hand Smoke Exposure: No Substance Use Type: Marijuana Advance Directives: No Advance Directives Information Provided: Yes service: No Current occupational status: unemployed Meds Allergies Allergy/AdvReac Type Severity Reaction Status Date / Time No Known Allergies Allergy Verified 06/01/25 16:54 Home Medications ?Medication ?Instructions ?Recorded ?Confirmed ?Last Taken ?Type albuterol 90 mcg/actuation aerosol 90 mcg inhalation Q 6-8H PRN Pain, 02/02/23 02/02/23 02/02/23 History inhaler Moderate ibuprofen 200 mg tablet 200 mg PO Q6H PRN Pain, Mode rate 02/02/23 02/02/23 02/02/23 History Physical Exam 2 Vital Signs and Narrative: Vital Signs: Last Vital Signs Temp 98.5 F 06/01/25 21:21 Pulse 110 H 06/01/25 20:46 Resp 24 H 06/01/25 20:46 BP 140/89 H 06/01/25 16:49 Pulse Ox 96 06/01/25 16:49 O2 Del Method Nasal Cannula 06/01/25 16:49 Oxygen Flow Rate 93 06/01/25 16:49 BMI result Body Mass Index 23.7 Gen: Appears be in no acute distress HEENT: NCAT, Moist mucosa. Pulmonary: Bilateral wheezing present CVS: Normal S1-S2 Abdomen: BS+, Soft, Nontender Extremities: Warm well perfused Neuro: Alert and awake. Results Labs 06/01/25 16:59 06/01/25 16:59 Labs: Laboratory Results - last 24 hr 06/01/25 06/01/25 06/01/25 16:59 17:03 20:20 MCV 99.2 H MCH 33.8 H MCHC 34.1 RDW 12.3 Plt Count 257 MPV 9.5 Immature Gran % (Auto) 0.5 H Neut % (Auto) 75.6 H Lymph % (Auto) 10.7 L [place] % (Auto) 11.9 H Eos % (Auto) 1.1 Baso % (Auto) 0.2 Lymph # (Auto) 1.3 [place] # (Auto) 1.5 H Eos # (Auto) 0.1 Baso # (Auto) 0.0 Abs Immat Gran (auto) 0.06 H Absolute Neuts (auto) 9.4 H Absolute Nucleated RBC 0.000 Nucleated RBC % (auto) 0.0 VBG pH 7.35 VBG pCO2 51 VBG pO2 85 VBG HCO3 28 H VBG O2 Saturation 95.0 VBG Base Excess 1.9 Anion Gap 13 Estim Creat Clear Calc 150.8 Estimated GFR > 60 Random Glucose 100 Calcium 9.0 Magnesium 2.1 COVID-19 ([facility]) Negative COVID-19 Clin Com See Note Influenza Type A (ALYSON) Negative Influenza Type B (ALYSON) Negative Influenza A & B Note See Note Assessment and Plan (1) COPD exacerbation: Status: Acute Plan 54-year-old male with a past medical history of COPD, tobacco dependence, anxiety, depression, PTSD; presented to the hospital today with a chief complaint of shortness of breath. Admitted for following Acute COPD exacerbation: Acute hypoxic respiratory failure: Patient respiratory status improving. Currently speaks in full sentences. Continue nebulizations standing and p.r.n. Continue Solu-Medrol IV Azithromycin Trending pulse oximetry and ready for discharge Will also obtain D-dimer DVT prophylaxis: Lovenox Code status: Full code Quality Stroke Does the patient have a stroke diagnosis?: No VTE Prior VTE?: No VTE Risk Level:: Medical - moderate - high VTE Device Contraindication: Treatment Not Indicated VTE Drug Contraindication: N/A - Med Ordered
[2025-06-02] VITALS (10 sets, daily range): BP systolic 101–130; BP diastolic 62–82; PULSE 76–101; RESP 12–19; TEMP 36.6–37.1; O2SAT 90–96; BMI 23.9
[2025-06-02 00:12] LABS: D Dimer High Sensitivity 170 NG/ML
[2025-06-02 04:59] LABS: MANUAL DIFF FLAG NO
[2025-06-02 05:01] LABS: Hematocrit 44.6 % (42.0-52.0); Hemoglobin 14.9 g/dl (14.0-18.0); Imm Gran Abs Auto 0.04 X10*3/uL (0.00-0.03); Imm Gran Pct Auto 0.4 % (0.0-0.4); Lymphocytes Absolute Auto 0.6 X10*3/uL (1.2-4.9); Mean Corpuscular HGB Conc 33.4 g/dl (31.0-36.0); Mean Corpuscular Hemoglobin 33.3 pg (27.0-33.0); Mean Corpuscular Volume 99.8 fL (80.0-98.0); NRBC Abs Auto 0.000 X10*3/uL (0.0-0.012); NRBC Pct Auto 0.0 /100WBC (0.0-0.2); Platelet Count 224 X10*3/uL (160-400); Red Blood Count 4.47 X10*6/uL (4.60-5.80); White Blood Count 9.7 X10*3/uL (4.8-10.8)
[2025-06-02 05:19] LABS: Alanine Aminotransferase 23 U/L (0-40); Albumin Level 3.8 g/dL (3.5-5.0); Alkaline Phosphatase 105 U/L (39-117); Anion Gap 11 (12-20); Aspartate Amino Transferase 19 U/L (5-37); Blood Urea Nitrogen 13 mg/dL (9-16); Calcium 8.7 mg/dL (8.4-10.2); Carbon Dioxide 26 mmol/L (22-29); Chloride 108 mmol/L (96-108); Creatinine Clr Calc Pharmacy 146.2; Estimated Glomerular Filt Rate > 60; Potassium 3.5 mmol/L (3.3-5.1); Sodium 141 mmol/L (135-145); Total Protein 6.1 g/dL (6.5-8.0)
[2025-06-02] MEDS: Albuterol/Iprat 2.5/0.5MG 3 ML AMPUL.NEB INHALE ×3 (07:38→19:45)
[2025-06-02] MEDS: 0.9 % Sodium Chloride Flush 3 ML SYRINGE IVFLUSH ×3 (07:46→22:19)
--- NOTE | 2025-06-02 08:23 | PC.NURSE ---
Pharmacy staff at bedside.
--- NOTE | 2025-06-02 08:49 | PHA.MEDREC ---
Addendum entered by Thor Sin, PharmAllyssa 06/02/25 09:24: MED REC CHECKED BY [facility] Original Note: Pharmacy Consult ? Medication Reconciliation Pharmacy has completed the medication reconciliation. Patient states he no longer has a provider so he hasn't been on any medications. He only takes Vitamins.
--- NOTE | 2025-06-02 10:39 | P.PNIM_ITS ---
Subjective Subjective Date of Service: 06/02/25 Interval History: Follow-up on COPD exacerbation, with hypoxia still sob, worse with exertion attempted weaning of O2, but unsucesful and back on O2 and stating 94 on 4 lters, O2 was as low as 89 rolan Physical Exam 2 Vital Signs: Vital Signs: Last Vital Signs Temp 97.9 F 06/02/25 03:52 Pulse 88 06/02/25 10:16 Resp 13 06/02/25 10:16 BP 117/72 06/02/25 10:16 Pulse Ox 94 06/02/25 10:16 O2 Del Method Nasal Cannula 06/02/25 10:16 O2 Flow Rate 3 06/02/25 10:16 Oxygen Flow Rate 93 06/01/25 16:49 BMI result Body Mass Index 23.7 Const: Other: General: AO X 3, no acute distress Resp: wheezing, some effort to breath CVS: S1,S2,RRR GI: +BS, NT, no distention Skin: No rash Neuro: motor grossly intact Psych: appropriate affect Objective Data Active Medications Acetaminophen (Acetaminophen 325 Mg Tablet) 650 mg PO Q6H PRN PRN Reason: Pain, Mild 1-3,fever,headache Last Admin: 06/02/25 07:52 Dose: 650 mg Documented By: FRED Albuterol/Ipratropium (Albuterol/Iprat 2.5/0.5mg 3 Ml Ampul.Neb) 3 ml INHALE Q4H PRN PRN Reason: Shortness of Breath/Wheezing Albuterol/Ipratropium (Albuterol/Iprat 2.5/0.5mg 3 Ml Ampul.Neb) 3 ml INHALE RQ6H WHILE AWAKE [facility] Last Admin: 06/02/25 07:38 Dose: 3 ml Documented By: CANELO Azithromycin (Azithromycin 500 Mg Tablet) 500 mg PO Q24H [facility] Last Admin: 06/01/25 22:54 Dose: 500 mg Documented By: VEE Calcium Carbonate (Calcium Carbonate 750 Mg Tab.Chew) 750 mg PO Q4H PRN PRN Reason: Heartburn Enoxaparin Sodium (Enoxaparin Sodium 40 Mg/0.4 Ml Syringe) 40 mg SUBCUT Q24H [facility] Last Admin: 06/01/25 22:56 Dose: 40 mg Documented By: HO.MIDDLEE Magnesium Hydroxide (Milk Of Magnesia 30 Ml Oral.Susp) 30 ml PO DAILY PRN PRN Reason: Constipation Melatonin (Melatonin 3 Mg Tablet) 6 mg PO BEDTIME PRN PRN Reason: Insomnia Methylprednisolone Sodium Succinate (Methylprednisolone Sod Succ 40 Mg/Ml Vial) 40 mg IVPUSH Q6H [facility] Last Admin: 06/02/25 10:12 Dose: 40 mg Documented By: FRED Sodium Chloride (0.9 % Sodium Chloride Flush 3 Ml Syringe) 3 ml IVFLUSH QSHIFT [facility] Last Admin: 06/02/25 07:46 Dose: 3 ml Documented By: FRED Labs 06/02/25 04:32 06/02/25 04:32 Labs: Laboratory Results - last 24 hr 06/01/25 06/01/25 06/01/25 16:59 17:03 20:20 MCV 99.2 H MCH 33.8 H MCHC 34.1 RDW 12.3 Plt Count 257 MPV 9.5 Immature Gran % (Auto) 0.5 H Neut % (Auto) 75.6 H Lymph % (Auto) 10.7 L [place] % (Auto) 11.9 H Eos % (Auto) 1.1 Baso % (Auto) 0.2 Lymph # (Auto) 1.3 [place] # (Auto) 1.5 H Eos # (Auto) 0.1 Baso # (Auto) 0.0 Abs Immat Gran (auto) 0.06 H Absolute Neuts (auto) 9.4 H Absolute Nucleated RBC 0.000 Nucleated RBC % (auto) 0.0 D-Dimer High Sensitivty VBG pH 7.35 VBG pCO2 51 VBG pO2 85 VBG HCO3 28 H VBG O2 Saturation 95.0 VBG Base Excess 1.9 Anion Gap 13 Estim Creat Clear Calc 150.8 Estimated GFR > 60 Random Glucose 100 Calcium 9.0 Magnesium 2.1 Total Bilirubin AST ALT Alkaline Phosphatase Total Protein Albumin COVID-19 ([facility]) Negative COVID-19 Clin Com See Note Influenza Type A ([facility]) Negative Influenza Type B ([facility]) Negative Influenza A & B Note See Note 06/01/25 06/02/25 23:45 04:32 MCV 99.8 H MCH 33.3 H MCHC 33.4 RDW 12.2 Plt Count 224 MPV 9.6 Immature Gran % (Auto) 0.4 Neut % (Auto) 83.9 H Lymph % (Auto) 6.6 L [place] % (Auto) 8.9 Eos % (Auto) 0.1 Baso % (Auto) 0.1 Lymph # (Auto) 0.6 L [place] # (Auto) 0.9 Eos # (Auto) 0.0 Baso # (Auto) 0.0 Abs Immat Gran (auto) 0.04 H Absolute Neuts (auto) 8.1 Absolute Nucleated RBC 0.000 Nucleated RBC % (auto) 0.0 D-Dimer High Sensitivty 170 VBG pH VBG pCO2 VBG pO2 VBG HCO3 VBG O2 Saturation VBG Base Excess Anion Gap 11 L Estim Creat Clear Calc 146.2 Estimated GFR > 60 Random Glucose 162 H Calcium 8.7 Magnesium Total Bilirubin 0.7 AST 19 ALT 23 Alkaline Phosphatase 105 Total Protein 6.1 L Albumin 3.8 COVID-19 ([facility]) COVID-19 Clin Com Influenza Type A ([facility]) Influenza Type B ([facility]) Influenza A & B Note Assessment and Plan (1) COPD (chronic obstructive pulmonary disease): Status: Acute Plan 54-year-old male with a past medical history of COPD, tobacco dependence, anxiety, depression, PTSD; presented to the hospital today with a chief complaint of shortness of breath. Admitted for following Acute COPD exacerbation: Acute hypoxic respiratory failure: Patient respiratory status improving but desat without o2 Continue nebulizations standing and p.r.n. Continue Solu-Medrol IV Azithromycin Trending pulse oximetry and ready for discharge DVT prophylaxis: Lovenox Code status: Full code Quality Stroke Does the patient have a stroke diagnosis?: No VTE Prior VTE?: No VTE Risk Level:: Medical - moderate - high VTE Device Contraindication: Treatment Not Indicated VTE Drug Contraindication: N/A - Med Ordered
--- NOTE | 2025-06-02 12:55 | MHC.CM.PN ---
Addendum entered by Marybeth Skinner 06/02/25 13:18: PT ALSO STATED HE IS WORRIED ABOUT LOSING HIS MH, HE SAYS HE IS SUPPOSED TO RENEW BEFORE 06/21/25, BUT DOES NOT UNDERSTAND HOW TO DO IT. REFERRAL SENT TO [facility] [place] [facility] FOR ASSISTANCE Original Note: PT REPORTS HE LIVES WITH A FRIEND AND IS INDEPENDENT WITH CARE HE HAS A NEBULIZER FOR DME AND NO SERVICES HE DOES NOT HAVE A PCP, BROCHURE PROVIDED DECLINES A HCP DCP: HOME VIA PRIVATE TRANSPORT PT REPORTS HE DOES NOT HAVE HIS ALBUTEROL FOR HIS NEBULIZER OR HIS INHALERS
[2025-06-03] VITALS (9 sets, daily range): BP systolic 121–143; BP diastolic 76–93; PULSE 63–119; RESP 16–20; TEMP 36.1–37.3; O2SAT 90–97
[2025-06-03] MEDS: Albuterol/Iprat 2.5/0.5MG 3 ML AMPUL.NEB INHALE ×3 (07:51→19:46)
[2025-06-03] MEDS: 0.9 % Sodium Chloride Flush 3 ML SYRINGE IVFLUSH ×3 (09:30→22:50)
[2025-06-03 09:50] LABS: Chlamydia pneumoniae PCR Not Detected (Not Detect.); Coronavirus 229E PCR Not Detected (Not Detect.); Coronavirus HKU1 PCR Not Detected (Not Detect.); Coronavirus NL63 PCR Not Detected (Not Detect.); Coronavirus OC43 PCR Not Detected (Not Detect.); RSV PCR Not Detected (Not Detect.); Rhino/Enterovirus PCR Not Detected (Not Detect.)
[2025-06-03 10:55] LABS: Influenza A H1 PCR Not Detected (Not Detect.); Influenza A H1-2009 PCR Not Detected (Not Detect.); Influenza A H3 PCR Not Detected (Not Detect.); SARS-CoV-2 PCR Not Detected (Not Detect.)
--- NOTE | 2025-06-03 11:23 | P.PNIM_ITS ---
Subjective Subjective Date of Service: 06/03/25 Interval History: f/u on asthma exacerbation he's feeling better still requiring oxygen Physical Exam 2 Vital Signs: Vital Signs: Last Vital Signs Temp 97.4 F 06/03/25 11:10 Pulse 82 06/03/25 11:10 Resp 18 06/03/25 11:10 BP 126/76 06/03/25 11:10 Pulse Ox 96 06/03/25 11:10 O2 Del Method Nasal Cannula 06/03/25 11:10 O2 Flow Rate 3 06/03/25 11:10 Oxygen Flow Rate 93 06/01/25 16:49 BMI result Body Mass Index 23.9 Const: Other: General: AO X 3, no acute distress Resp: wheezing, some effort to breath CVS: S1,S2,RRR GI: +BS, NT, no distention Skin: No rash Neuro: motor grossly intact Psych: appropriate affect Objective Data Active Medications Acetaminophen (Acetaminophen 325 Mg Tablet) 650 mg PO Q6H PRN PRN Reason: Pain, Mild 1-3,fever,headache Last Admin: 06/02/25 22:19 Dose: 650 mg Documented By: BARRINGTON Albuterol/Ipratropium (Albuterol/Iprat 2.5/0.5mg 3 Ml Ampul.Neb) 3 ml INHALE Q4H PRN PRN Reason: Shortness of Breath/Wheezing Albuterol/Ipratropium (Albuterol/Iprat 2.5/0.5mg 3 Ml Ampul.Neb) 3 ml INHALE RQ6H WHILE AWAKE [facility] Last Admin: 06/03/25 07:51 Dose: 3 ml Documented By: BUTCH Azithromycin (Azithromycin 500 Mg Tablet) 500 mg PO Q24H [facility] Last Admin: 06/02/25 22:19 Dose: 500 mg Documented By: BARRINGTON Calcium Carbonate (Calcium Carbonate 750 Mg Tab.Chew) 750 mg PO Q4H PRN PRN Reason: Heartburn Enoxaparin Sodium (Enoxaparin Sodium 40 Mg/0.4 Ml Syringe) 40 mg SUBCUT Q24H [facility] Last Admin: 06/02/25 22:20 Dose: 40 mg Documented By: BARRINGTON Magnesium Hydroxide (Milk Of Magnesia 30 Ml Oral.Susp) 30 ml PO DAILY PRN PRN Reason: Constipation Melatonin (Melatonin 3 Mg Tablet) 6 mg PO BEDTIME PRN PRN Reason: Insomnia Methylprednisolone Sodium Succinate (Methylprednisolone Sod Succ 40 Mg/Ml Vial) 40 mg IVPUSH Q6H [facility] Last Admin: 06/03/25 09:28 Dose: 40 mg Documented By: MERLY Sodium Chloride (0.9 % Sodium Chloride Flush 3 Ml Syringe) 3 ml IVFLUSH QSHIFT [facility] Last Admin: 06/03/25 09:30 Dose: 3 ml Documented By: MERLY Labs 06/02/25 04:32 06/02/25 04:32 Labs: Laboratory Results - last 24 hr 06/02/25 17:16 Respiratory Panel Garcia See Note Adenovirus (Rapid PCR) Not Detected B.pert (TEM-PCR) Not Detected B.parapertussis DNA PCR Not Detected C. pneumoniae DNA (PCR) Not Detected Coronavirus OC43 (PCR) Not Detected Coronavirus HKU1 (PCR) Not Detected Coronavirus 229E (PCR) Not Detected Coronavirus NL63 (PCR) Not Detected Human Metapneumovir PCR Not Detected Influenza A (RT-PCR) Not Detected Influenza A (H1) PCR Not Detected Influ A (H1/09) PCR Not Detected Influenza A (H3) PCR Not Detected Influenza B (RT-PCR) Not Detected M. pneumoniae (PCR) Not Detected Parainfluenza 1 (PCR) Not Detected Parainfluenza 2 (PCR) Not Detected Parainfluenza 3 (PCR) Not Detected Parainfluenza 4 (PCR) Not Detected RSV (PCR) Not Detected Entero/Rhino (PCR) Not Detected SARS-CoV-2 RNA (RT-PCR) Not Detected Assessment and Plan (1) COPD (chronic obstructive pulmonary disease): Status: Acute Plan 54-year-old male with a past medical history of COPD, tobacco dependence, anxiety, depression, PTSD; presented to the hospital today with a chief complaint of shortness of breath. Admitted for following Acute COPD exacerbation: Acute hypoxic respiratory failure: improving Continue nebulizations standing and p.r.n. Continue Solu-Medrol IV Azithromycin empirically Trending pulse oximetry and ready for discharge Wean off O2 and consider changing to steroid DVT prophylaxis: Lovenox Code status: Full code Quality Stroke Does the patient have a stroke diagnosis?: No VTE Prior VTE?: No VTE Risk Level:: Medical - moderate - high VTE Device Contraindication: Treatment Not Indicated VTE Drug Contraindication: N/A - Med Ordered
[2025-06-03] MEDS: Milk of Magnesia 30 ML ORAL.SUSP PO (16:15)
[2025-06-04] VITALS (9 sets, daily range): BP systolic 114–129; BP diastolic 71–86; PULSE 63–99; RESP 18–20; TEMP 35.8–37.4; O2SAT 90–97
[2025-06-04] MEDS: Albuterol/Iprat 2.5/0.5MG 3 ML AMPUL.NEB INHALE ×3 (07:47→19:37)
[2025-06-04] MEDS: 0.9 % Sodium Chloride Flush 3 ML SYRINGE IVFLUSH ×3 (08:03→21:55)
[2025-06-04] MEDS: Milk of Magnesia 30 ML ORAL.SUSP PO (08:05)
--- NOTE | 2025-06-04 11:46 | P.PNIM_ITS ---
Subjective Subjective Date of Service: 06/04/25 Interval History: f/u on asthma exacerbation he's feeling better he desats into 80s without O2 Otherwise looks comfortable Physical Exam 2 Vital Signs: Vital Signs: Last Vital Signs Temp 98.5 F 06/04/25 11:01 Pulse 77 06/04/25 11:01 Resp 18 06/04/25 11:01 BP 120/77 06/04/25 11:01 Pulse Ox 97 06/04/25 11:01 O2 Del Method Nasal Cannula 06/04/25 11:01 O2 Flow Rate 3 06/04/25 11:01 Oxygen Flow Rate 93 06/01/25 16:49 BMI result Body Mass Index 23.9 Const: Other: General: AO X 3, no acute distress Resp: wheezing, some effort to breath CVS: S1,S2,RRR GI: +BS, NT, no distention Skin: No rash Neuro: motor grossly intact Psych: appropriate affect Objective Data Active Medications Acetaminophen (Acetaminophen 325 Mg Tablet) 650 mg PO Q6H PRN PRN Reason: Pain, Mild 1-3,fever,headache Last Admin: 06/04/25 08:19 Dose: 650 mg Documented By: MERLY Albuterol/Ipratropium (Albuterol/Iprat 2.5/0.5mg 3 Ml Ampul.Neb) 3 ml INHALE Q4H PRN PRN Reason: Shortness of Breath/Wheezing Albuterol/Ipratropium (Albuterol/Iprat 2.5/0.5mg 3 Ml Ampul.Neb) 3 ml INHALE RQ6H WHILE AWAKE [facility] Last Admin: 06/04/25 07:47 Dose: 3 ml Documented By: BUTCH Azithromycin (Azithromycin 500 Mg Tablet) 500 mg PO Q24H [facility] Last Admin: 06/03/25 22:50 Dose: 500 mg Documented By: BARRINGTON Calcium Carbonate (Calcium Carbonate 750 Mg Tab.Chew) 750 mg PO Q4H PRN PRN Reason: Heartburn Enoxaparin Sodium (Enoxaparin Sodium 40 Mg/0.4 Ml Syringe) 40 mg SUBCUT Q24H [facility] Last Admin: 06/03/25 22:50 Dose: 40 mg Documented By: BARRINGTON Lorazepam (Lorazepam 0.5 Mg Tablet) 0.5 mg PO Q6H PRN PRN Reason: Anxiety Last Admin: 06/04/25 08:30 Dose: 0.5 mg Documented By: MERLY Magnesium Hydroxide (Milk Of Magnesia 30 Ml Oral.Susp) 30 ml PO DAILY PRN PRN Reason: Constipation Last Admin: 06/04/25 08:05 Dose: 30 ml Documented By: MERLY Melatonin (Melatonin 3 Mg Tablet) 6 mg PO BEDTIME PRN PRN Reason: Insomnia Methylprednisolone Sodium Succinate (Methylprednisolone Sod Succ 40 Mg/Ml Vial) 40 mg IVPUSH Q6H [facility] Last Admin: 06/04/25 08:19 Dose: 40 mg Documented By: MERLY Sodium Chloride (0.9 % Sodium Chloride Flush 3 Ml Syringe) 3 ml IVFLUSH QSHIFT [facility] Last Admin: 06/04/25 08:03 Dose: 3 ml Documented By: MERLY Labs 06/02/25 04:32 06/02/25 04:32 Labs: Laboratory Results - last 24 hr 06/02/25 17:16 Respiratory Panel Garcia See Note Adenovirus (Rapid PCR) Not Detected B.pert (TEM-PCR) Not Detected B.parapertussis DNA PCR Not Detected C. pneumoniae DNA (PCR) Not Detected Coronavirus OC43 (PCR) Not Detected Coronavirus HKU1 (PCR) Not Detected Coronavirus 229E (PCR) Not Detected Coronavirus NL63 (PCR) Not Detected Human Metapneumovir PCR Not Detected Influenza A (RT-PCR) Not Detected Influenza A (H1) PCR Not Detected Influ A (H1/09) PCR Not Detected Influenza A (H3) PCR Not Detected Influenza B (RT-PCR) Not Detected M. pneumoniae (PCR) Not Detected Parainfluenza 1 (PCR) Not Detected Parainfluenza 2 (PCR) Not Detected Parainfluenza 3 (PCR) Not Detected Parainfluenza 4 (PCR) Not Detected RSV (PCR) Not Detected Entero/Rhino (PCR) Not Detected SARS-CoV-2 RNA (RT-PCR) Not Detected Assessment and Plan (1) COPD (chronic obstructive pulmonary disease): Status: Acute Plan 54-year-old male with a past medical history of COPD, tobacco dependence, anxiety, depression, PTSD; presented to the hospital today with a chief complaint of shortness of breath. Admitted for following Acute COPD exacerbation: Acute hypoxic respiratory failure: improving Continue nebulizations standing and p.r.n. Continue Solu-Medrol IV Azithromycin empirically Trending pulse oximetry and ready for discharge Wean off O2 and consider changing to oral steroid, he may need to go home with O2 DVT prophylaxis: Lovenox Code status: Full code Quality Stroke Does the patient have a stroke diagnosis?: No VTE Prior VTE?: No VTE Risk Level:: Medical - moderate - high VTE Device Contraindication: Treatment Not Indicated VTE Drug Contraindication: N/A - Med Ordered
[2025-06-05] VITALS (9 sets, daily range): BP systolic 117–128; BP diastolic 71–83; PULSE 67–90; RESP 16–19; TEMP 36.2–36.8; O2SAT 91–94
[2025-06-05] MEDS: Albuterol/Iprat 2.5/0.5MG 3 ML AMPUL.NEB INHALE ×3 (07:49→20:55)
[2025-06-05] MEDS: guaiFENesin LA 600 MG TAB.ER.12H PO ×2 (08:28→21:45)
[2025-06-05] MEDS: 0.9 % Sodium Chloride Flush 3 ML SYRINGE IVFLUSH ×3 (08:28→21:51)
[2025-06-05] MEDS: Milk of Magnesia 30 ML ORAL.SUSP PO (08:32)
--- NOTE | 2025-06-05 09:43 | MHC.CM.PN ---
Addendum entered by Brenda Cobb RN 06/05/25 13:35: PLAN IS FOR DC 06/06/25. WILL NEED RESPIRATORY HOME O2 EVAL. PER CONVERSATION WITH RT, PATIENT IS ASKING FOR PT EVAL. PROVIDER IS REPORTEDLY AWARE OF REQUEST. Original Note: PER REVIEW OF CHART, PATIENT MAY NEED HOME O2 AT DC. CM FOLLOWING FOR DC NEEDS.
--- NOTE | 2025-06-05 11:03 | HO.PM.IMPN ---
Subjective Subjective Date of Service: 06/05/25 Interval History: f/u on asthma exacerbation/copd exacerbation Feels congested he desats signficantly with minimal exertion Physical Exam Vital Signs: Vital Signs: Last Vital Signs Temp 97.6 F 06/05/25 07:09 Pulse 81 06/05/25 07:51 Resp 19 06/05/25 07:51 BP 122/82 06/05/25 07:09 Pulse Ox 92 06/05/25 07:09 O2 Del Method Nasal Cannula 06/05/25 07:09 O2 Flow Rate 3 06/05/25 07:09 Oxygen Flow Rate 93 06/01/25 16:49 BMI result Body Mass Index 23.9 Const: Other: General: AO X 3, no acute distress Resp: wheezing, some effort to breath CVS: S1,S2,RRR GI: +BS, NT, no distention Skin: No rash Neuro: motor grossly intact Psych: appropriate affect Objective Data Active Medications Acetaminophen (Acetaminophen 325 Mg Tablet) 650 mg PO Q6H PRN PRN Reason: Pain, Mild 1-3,fever,headache Last Admin: 06/05/25 08:31 Dose: 650 mg Documented By: NAVJOT Albuterol/Ipratropium (Albuterol/Iprat 2.5/0.5mg 3 Ml Ampul.Neb) 3 ml INHALE Q4H PRN PRN Reason: Shortness of Breath/Wheezing Albuterol/Ipratropium (Albuterol/Iprat 2.5/0.5mg 3 Ml Ampul.Neb) 3 ml INHALE RQ6H WHILE AWAKE [facility] Last Admin: 06/05/25 07:49 Dose: 3 ml Documented By: TISH Azithromycin (Azithromycin 500 Mg Tablet) 500 mg PO Q24H [facility] Last Admin: 06/04/25 21:53 Dose: 500 mg Documented By: TYRA Calcium Carbonate (Calcium Carbonate 750 Mg Tab.Chew) 750 mg PO Q4H PRN PRN Reason: Heartburn Enoxaparin Sodium (Enoxaparin Sodium 40 Mg/0.4 Ml Syringe) 40 mg SUBCUT Q24H [facility] Last Admin: 06/04/25 21:53 Dose: 40 mg Documented By: TYRA Guaifenesin (Guaifenesin La 600 Mg Tab.Er.12h) 600 mg PO BID [facility] Last Admin: 06/05/25 08:28 Dose: 600 mg Documented By: NAVJOT Lorazepam (Lorazepam 0.5 Mg Tablet) 0.5 mg PO Q6H PRN PRN Reason: Anxiety Last Admin: 06/05/25 08:32 Dose: 0.5 mg Documented By: NAVJOT Magnesium Hydroxide (Milk Of Magnesia 30 Ml Oral.Susp) 30 ml PO DAILY PRN PRN Reason: Constipation Last Admin: 06/05/25 08:32 Dose: 30 ml Documented By: NAVJOT Melatonin (Melatonin 3 Mg Tablet) 6 mg PO BEDTIME PRN PRN Reason: Insomnia Methylprednisolone Sodium Succinate (Methylprednisolone Sod Succ 40 Mg/Ml Vial) 40 mg IVPUSH Q6H [facility] Last Admin: 06/05/25 11:01 Dose: 40 mg Documented By: NAVJOT Sodium Chloride (0.9 % Sodium Chloride Flush 3 Ml Syringe) 3 ml IVFLUSH QSHIFT [facility] Last Admin: 06/05/25 08:28 Dose: 3 ml Documented By: NAVJOT Labs 06/02/25 04:32 06/02/25 04:32 Labs: Laboratory Results - last 24 hr 06/02/25 17:16 Respiratory Panel Garcia See Note Adenovirus (Rapid PCR) Not Detected B.pert (TEM-PCR) Not Detected B.parapertussis DNA PCR Not Detected C. pneumoniae DNA (PCR) Not Detected Coronavirus OC43 (PCR) Not Detected Coronavirus HKU1 (PCR) Not Detected Coronavirus 229E (PCR) Not Detected Coronavirus NL63 (PCR) Not Detected Human Metapneumovir PCR Not Detected Influenza A (RT-PCR) Not Detected Influenza A (H1) PCR Not Detected Influ A (H1/09) PCR Not Detected Influenza A (H3) PCR Not Detected Influenza B (RT-PCR) Not Detected M. pneumoniae (PCR) Not Detected Parainfluenza 1 (PCR) Not Detected Parainfluenza 2 (PCR) Not Detected Parainfluenza 3 (PCR) Not Detected Parainfluenza 4 (PCR) Not Detected RSV (PCR) Not Detected Entero/Rhino (PCR) Not Detected SARS-CoV-2 RNA (RT-PCR) Not Detected Assessment and Plan (1) COPD (chronic obstructive pulmonary disease): Status: Acute Plan 54-year-old male with a past medical history of COPD, tobacco dependence, anxiety, depression, PTSD; presented to the hospital today with a chief complaint of shortness of breath. Admitted for following Acute COPD exacerbation/asthma: Acute hypoxic respiratory failure: improving but slowly Continue nebulizations standing and p.r.n. Continue Solu-Medrol IV Azithromycin empirically Trending pulse oximetry and ready for discharge Wean off O2 and consider changing to oral steroid, he may need to go home with O2 May need pulmnoary rehab DVT prophylaxis: Lovenox Code status: Full code Quality Stroke Does the patient have a stroke diagnosis?: No VTE Prior VTE?: No VTE Risk Level:: Medical - moderate - high VTE Device Contraindication: Treatment Not Indicated VTE Drug Contraindication: N/A - Med Ordered
[2025-06-06] VITALS (8 sets, daily range): BP systolic 117–130; BP diastolic 64–80; PULSE 68–104; RESP 16–20; TEMP 36.2–37.6; O2SAT 88–97
[2025-06-06] MEDS: Albuterol/Iprat 2.5/0.5MG 3 ML AMPUL.NEB INHALE ×4 (03:24→20:26)
[2025-06-06] MEDS: 0.9 % Sodium Chloride Flush 3 ML SYRINGE IVFLUSH ×2 (07:38→21:57)
[2025-06-06] MEDS: Milk of Magnesia 30 ML ORAL.SUSP PO (07:39)
[2025-06-06] MEDS: guaiFENesin LA 600 MG TAB.ER.12H PO ×2 (07:39→21:56)
--- NOTE | 2025-06-06 13:24 | HO.PM.IMPN ---
Subjective Subjective Date of Service: 06/06/25 Interval History: f/u on asthma exacerbation/copd exacerbation Still short of breath and desat easily Physical Exam Vital Signs: Vital Signs: Last Vital Signs Temp 99.7 F 06/06/25 11:21 Pulse 104 H 06/06/25 11:21 Resp 20 06/06/25 11:21 BP 128/78 06/06/25 11:21 Pulse Ox 89 L 06/06/25 11:21 O2 Del Method Nasal Cannula 06/06/25 11:21 O2 Flow Rate 2 06/06/25 11:21 Oxygen Flow Rate 93 06/01/25 16:49 BMI result Body Mass Index 23.9 General: AO X 3, has to stop frequuent and catch breath Resp: Bilateral expiratory wheezes, with some increased work of breathing CVS: S1,S2,RRR GI: +BS, NT, no distention Skin: No rash Neuro: motor grossly intact Psych: appropriate affect Const: Other: General: AO X 3, no acute distress Resp: wheezing, some effort to breath CVS: S1,S2,RRR GI: +BS, NT, no distention Skin: No rash Neuro: motor grossly intact Psych: appropriate affect Objective Data Active Medications Acetaminophen (Acetaminophen 325 Mg Tablet) 650 mg PO Q6H PRN PRN Reason: Pain, Mild 1-3,fever,headache Last Admin: 06/06/25 11:03 Dose: 650 mg Documented By: ZULEMA Albuterol/Ipratropium (Albuterol/Iprat 2.5/0.5mg 3 Ml Ampul.Neb) 3 ml INHALE Q4H PRN PRN Reason: Shortness of Breath/Wheezing Last Admin: 06/06/25 03:24 Dose: 3 ml Documented By: HESHAM Albuterol/Ipratropium (Albuterol/Iprat 2.5/0.5mg 3 Ml Ampul.Neb) 3 ml INHALE RQ6H WHILE AWAKE [facility] Last Admin: 06/06/25 08:05 Dose: 3 ml Documented By: GITA Azithromycin (Azithromycin 500 Mg Tablet) 500 mg PO Q24H [facility] Last Admin: 06/05/25 21:45 Dose: 500 mg Documented By: HESHAM Calcium Carbonate (Calcium Carbonate 750 Mg Tab.Chew) 750 mg PO Q4H PRN PRN Reason: Heartburn Enoxaparin Sodium (Enoxaparin Sodium 40 Mg/0.4 Ml Syringe) 40 mg SUBCUT Q24H [facility] Last Admin: 06/05/25 21:45 Dose: 40 mg Documented By: HESHAM Guaifenesin (Guaifenesin La 600 Mg Tab.Er.12h) 600 mg PO BID [facility] Last Admin: 06/06/25 07:39 Dose: 600 mg Documented By: ZULEMA Lactulose (Lactulose 20 Gm/30 Ml Solution) 20 gm PO DAILY PRN PRN Reason: Constipation Last Admin: 06/06/25 07:39 Dose: 20 gm Documented By: ZULEMA Lorazepam (Lorazepam 0.5 Mg Tablet) 0.5 mg PO Q6H PRN PRN Reason: Anxiety Last Admin: 06/06/25 11:07 Dose: 0.5 mg Documented By: ZULEMA Magnesium Hydroxide (Milk Of Magnesia 30 Ml Oral.Susp) 30 ml PO DAILY PRN PRN Reason: Constipation Last Admin: 06/06/25 07:39 Dose: 30 ml Documented By: ZULEMA Melatonin (Melatonin 3 Mg Tablet) 6 mg PO BEDTIME PRN PRN Reason: Insomnia Methylprednisolone Sodium Succinate (Methylprednisolone Sod Succ 40 Mg/Ml Vial) 40 mg IVPUSH Q6H [facility] Last Admin: 06/06/25 11:03 Dose: 40 mg Documented By: ZULEMA Sodium Chloride (0.9 % Sodium Chloride Flush 3 Ml Syringe) 3 ml IVFLUSH QSHIFT [facility] Last Admin: 06/06/25 07:38 Dose: 3 ml Documented By: ZULEMA Labs 06/02/25 04:32 06/02/25 04:32 Labs: Laboratory Results - last 24 hr 06/02/25 17:16 Respiratory Panel Garcia See Note Adenovirus (Rapid PCR) Not Detected B.pert (TEM-PCR) Not Detected B.parapertussis DNA PCR Not Detected C. pneumoniae DNA (PCR) Not Detected Coronavirus OC43 (PCR) Not Detected Coronavirus HKU1 (PCR) Not Detected Coronavirus 229E (PCR) Not Detected Coronavirus NL63 (PCR) Not Detected Human Metapneumovir PCR Not Detected Influenza A (RT-PCR) Not Detected Influenza A (H1) PCR Not Detected Influ A (H1/09) PCR Not Detected Influenza A (H3) PCR Not Detected Influenza B (RT-PCR) Not Detected M. pneumoniae (PCR) Not Detected Parainfluenza 1 (PCR) Not Detected Parainfluenza 2 (PCR) Not Detected Parainfluenza 3 (PCR) Not Detected Parainfluenza 4 (PCR) Not Detected RSV (PCR) Not Detected Entero/Rhino (PCR) Not Detected SARS-CoV-2 RNA (RT-PCR) Not Detected Assessment and Plan (1) COPD (chronic obstructive pulmonary disease): Status: Acute Plan 54-year-old male with a past medical history of COPD, tobacco dependence, anxiety, depression, PTSD; presented to the hospital today with a chief complaint of shortness of breath. Admitted for following Acute COPD exacerbation/asthma, persistent symptoms with hypoxia Acute hypoxic respiratory failure: Slow to improve Continue nebulizations standing and p.r.n. Continue Solu-Medrol IV Azithromycin empirically Trending pulse oximetry and ready for discharge Wean off O2 and consider changing to oral steroid, he may need to go home with O2 vs Pulmonary rehab DVT prophylaxis: Lovenox Code status: Full code Quality Stroke Does the patient have a stroke diagnosis?: No VTE Prior VTE?: No VTE Risk Level:: Medical - moderate - high VTE Device Contraindication: Treatment Not Indicated VTE Drug Contraindication: N/A - Med Ordered
--- NOTE | 2025-06-06 13:30 | MHC.CM.PN ---
THIS CM MET WITH PT TO DISCUSS DISCHARGE PLAN, PT RECOMMENDED STR, PT IS UNSURE WHAT HE WANTS TO DO. THIS CM PROVIDED PT WITH A LIST OF SNF'S TO REVIEW, STR REFERRAL ALSO SENT IN [facility]. 4 STR BED OFFERS RECEIVED, PT STATES HE IS OVERWHELMED AND NEEDS TIME TO THINK, AND MIGHT JUST WANT TO GO HOME AT THIS POINT. IF PT DOES DECIDE TO GO TO STR, WILL NEED TO SUBMIT AN MDS SCREEN. HOSPITALIST UPDATED.
--- NOTE | 2025-06-06 18:19 | PC.NURSE ---
pt took his pulse oxymeter off, stating he does not want to be monitored nor wearing oxygen, he puts nasal cannula on and off
[2025-06-07] VITALS (11 sets, daily range): BP systolic 104–138; BP diastolic 57–96; PULSE 57–102; RESP 16–20; TEMP 36.6–37.3; O2SAT 90–94
[2025-06-07] MEDS: Albuterol/Iprat 2.5/0.5MG 3 ML AMPUL.NEB INHALE ×4 (05:41→20:19)
[2025-06-07] MEDS: guaiFENesin LA 600 MG TAB.ER.12H PO ×2 (09:41→20:58)
[2025-06-07] MEDS: 0.9 % Sodium Chloride Flush 3 ML SYRINGE IVFLUSH ×2 (09:42→20:59)
--- NOTE | 2025-06-07 14:40 | MHC.CM.PN ---
THIS CM MET WITH PT TO DISCUSS STR OPTIONS, HE STATES HE IS NOT WILLING TO GO AND WOULD LIKE TO RETURN HOME. PT DOESN'T HAVE A PCP, THIS CM ASSISTED PT WITH CALLING HIS INSURANCE TO CHANGE [facility] FROM [place] TO [place]. THIS CHANGE MAY TAKE UP TO 72 HOURS TO GO INTO EFFECT. ONCE CHANGED, HE CAN BE SCHEDULED FOR A NEW PCP APPOINTMENT AT [facility] ([place] [phone]).
--- NOTE | 2025-06-07 17:33 | PM.IMPN ---
Progress Note: A&P (1) COPD exacerbation: Status: Acute Plan 54-year-old male with a past medical history of COPD, tobacco dependence, anxiety, depression, PTSD; presented to the hospital today with a chief complaint of shortness of breath. Admitted for following Acute COPD exacerbation/asthma: Acute hypoxic respiratory failure: improving but slowly Continue nebulizations standing and p.r.n. Continue Solu-Medrol IV Azithromycin empirically Trending pulse oximetry and ready for discharge Wean off O2 and consider changing to oral steroid, he may need to go home with O2 May need pulmnoary rehab DVT prophylaxis: Lovenox Code status: Full Ongoing need of stay: COPD exacerbation-oxygen need, nebs, steroids, respiratory status is not optimal yet been Subjective Subjective Date of Service: 06/07/25 Interval History: COPD exacerbation Review of Systems Short of breath with minimal exertion, cough Review of Systems: Yes all other systems are reviewed and are negative Physical Exam Exam: Exam: General: AO X 3, short of breath Resp: wheezing, some effort to breath CVS: S1,S2,RRR GI: +BS, NT, no distention Skin: No rash Neuro: motor grossly intact Psych: appropriate affect Vital Signs: Vital Signs: Last Vital Signs Temp 99.1 F 06/07/25 15:42 Pulse 100 06/07/25 15:42 Resp 18 06/07/25 15:42 BP 121/78 06/07/25 15:42 Pulse Ox 94 06/07/25 15:42 O2 Del Method Nasal Cannula 06/07/25 15:42 O2 Flow Rate 2 06/07/25 15:42 Oxygen Flow Rate 93 06/01/25 16:49 BMI result Body Mass Index 23.9 Objective Data Current Medications Acetaminophen (Acetaminophen 325 Mg Tablet) 650 mg PO Q6H PRN PRN Reason: Pain, Mild 1-3,fever,headache Last Admin: 06/06/25 11:03 Dose: 650 mg Albuterol/Ipratropium (Albuterol/Iprat 2.5/0.5mg 3 Ml Ampul.Neb) 3 ml INHALE Q4H PRN PRN Reason: Shortness of Breath/Wheezing Last Admin: 06/07/25 05:41 Dose: 3 ml Albuterol/Ipratropium (Albuterol/Iprat 2.5/0.5mg 3 Ml Ampul.Neb) 3 ml INHALE RQ6H WHILE AWAKE [facility] Last Admin: 06/07/25 15:27 Dose: 3 ml Azithromycin (Azithromycin 500 Mg Tablet) 500 mg PO Q24H [facility] Last Admin: 06/06/25 21:56 Dose: 500 mg Calcium Carbonate (Calcium Carbonate 750 Mg Tab.Chew) 750 mg PO Q4H PRN PRN Reason: Heartburn Enoxaparin Sodium (Enoxaparin Sodium 40 Mg/0.4 Ml Syringe) 40 mg SUBCUT Q24H [facility] Last Admin: 06/06/25 21:56 Dose: 40 mg Guaifenesin (Guaifenesin La 600 Mg Tab.Er.12h) 600 mg PO BID [facility] Last Admin: 06/07/25 09:41 Dose: 600 mg Lactulose (Lactulose 20 Gm/30 Ml Solution) 20 gm PO DAILY PRN PRN Reason: Constipation Last Admin: 06/07/25 16:35 Dose: 20 gm Lorazepam (Lorazepam 0.5 Mg Tablet) 0.5 mg PO Q6H PRN PRN Reason: Anxiety Last Admin: 06/07/25 16:35 Dose: 0.5 mg Magnesium Hydroxide (Milk Of Magnesia 30 Ml Oral.Susp) 30 ml PO DAILY PRN PRN Reason: Constipation Last Admin: 06/06/25 07:39 Dose: 30 ml Melatonin (Melatonin 3 Mg Tablet) 6 mg PO BEDTIME PRN PRN Reason: Insomnia Methylprednisolone Sodium Succinate (Methylprednisolone Sod Succ 40 Mg/Ml Vial) 40 mg IVPUSH Q6H [facility] Last Admin: 06/07/25 16:35 Dose: 40 mg Sodium Chloride (0.9 % Sodium Chloride Flush 3 Ml Syringe) 3 ml IVFLUSH QSHIFT [facility] Last Admin: 06/07/25 17:16 Dose: Not Given Labs 06/02/25 04:32 06/02/25 04:32 Quality Stroke Does the patient have a stroke diagnosis?: No VTE Prior VTE?: No VTE Risk Level:: Medical - moderate - high VTE Device Contraindication: Treatment Not Indicated VTE Drug Contraindication: N/A - Med Ordered
[2025-06-08 02:57] VITALS: BP 114/67; PULSE 64; RESP 18; TEMP 36.9; O2SAT 92
[2025-06-08] MEDS: Milk of Magnesia 30 ML ORAL.SUSP PO (04:27)
[2025-06-08 07:00] VITALS: BP 118/73; PULSE 80; RESP 18; TEMP 36.8; O2SAT 91
[2025-06-08] MEDS: Albuterol/Iprat 2.5/0.5MG 3 ML AMPUL.NEB INHALE (07:49)
[2025-06-08 07:50] VITALS: PULSE 94; RESP 18; O2SAT 88
[2025-06-08] MEDS: guaiFENesin LA 600 MG TAB.ER.12H PO (09:05)
[2025-06-08] MEDS: 0.9 % Sodium Chloride Flush 3 ML SYRINGE IVFLUSH (09:05)
[2025-06-08 11:19] VITALS: BP 133/70; PULSE 102; RESP 20; TEMP 36.8; O2SAT 90
--- NOTE | 2025-06-08 12:49 | PM.DS ---
DS: Providers Provider Date of Service: 06/08/25 Date of admission: 06/01/25 22:33 Date of discharge: 06/08/25 Primary care physician: [facility] Attending physician on discharge: Jolene Nascimento Discharging clinician: Jolene Nascimento DS: Diagnosis Discharge Diagnosis (1) COPD exacerbation: Status: Acute DS: Summary Hospital Course Hospital Course: HPI:54-year-old male with a past medical history of COPD, tobacco dependence, anxiety, depression, PTSD; presented to the hospital today with a chief complaint of shortness of breath. Patient reports over the past few days he has been having shortness of breath with cough. Denies any sputum production. Denies any fevers. Denies any sick contacts. Denies any chest pain or palpitations. Review of all other systems is negative except mentioned above ER course: Per ER team, patient noted to be short of breath, has bilateral wheezing; noted to be hypoxic with minimal activity dropped down to 86% on room air; placed on supplemental oxygen. Not in respiratory distress. Given Solu-Medrol, IV magnesium, nebulizers with improvement in respiratory status. Chest x-ray showed no acute cardiopulmonary process. Hospital course:54-year-old male with a past medical history of COPD, tobacco dependence, anxiety, depression, PTSD; presented to the hospital today with a chief complaint of shortness of breath: Acute hypoxic respiratory failure sec Acute COPD exacerbation: Chest x-ray negative, started on nebs, steroids, antibiotics: Seems to be improved significantly, completed antibiotic course. D-dimer 170. Patient seems to be significantly improved, asymptomatic, walking without any symptoms. Will be going home with p.o. steroids . Also ordered albuterol/breo. Constipation: Added laxatives p.r.n.. Patient was strongly advised to abstain from smoking, added nicotine replacement. Plan: Complete steroids Continue albuterol/Breo Laxative p.r.n. for constipation Patient was strongly advised to abstain from smoking, added nicotine replacement. Above management discussed with the patient in detail length he understand and in agreement with the above plan, time spent 50 minute, all questions answered. Time Attestation Total time managing care of this patient today: 50 mintues. Discharge Coordination Time (in mins): 50 min Quality: Safe Use of Opioids Does Pt have an Active Cancer Diagnosis on the Problem List?: No Quality: Stroke Does the patient have a stroke diagnosis?: No Physical Exam Exam: Exam: General: AO X 3, has to stop frequuent and catch breath Resp: Air entry fair, no wheezing or rales. CVS: S1,S2,RRR GI: +BS, NT, no distention Skin: No rash Neuro: motor grossly intact Psych: appropriate affect Vital Signs: Vital Signs: Last Vital Signs Temp 98.3 F 06/08/25 11:19 Pulse 102 H 06/08/25 11:19 Resp 20 06/08/25 11:19 BP 133/70 06/08/25 11:19 Pulse Ox 90 L 06/08/25 11:19 O2 Del Method Room Air 06/08/25 11:19 O2 Flow Rate 2 06/08/25 07:00 Oxygen Flow Rate 93 06/01/25 16:49 BMI result Body Mass Index 23.9 Discharge Plan Discharge Anticipated Discharge Date/Time: 06/08/25 12:09 Patient Disposition: Home, Self-Care Discharge Diagnosis: copd excerebation Referrals: [place] [place] [Primary Care Provider, Medical] - 1 Week Discharge Medications: New prednisone 10 mg tablet See Taper PO DIRECTED Qty: 20 0RF Taper: Prednisone 40 mg daily for 2 Days and 0 Hour 30 mg daily for 2 Days and 0 Hour 20 mg daily for 2 Days and 0 Hour 10 mg daily for 2 Days and 0 Hour Rx Instructions: see taper instructions lorazepam 0.5 mg Tablet 0.5 mg PO Q8H PRN (Reason: Anxiety) Qty: 14 0RF Rx Instructions: ativan 0.5 mg p.o. t.i.d. for 2 days, then Ativan 0.5 mg p.o. b.i.d. for 3 days, Ativan 0.5 p.o. q.day for 3 days. Follow up outpatient . fluticasone furoate-vilanterol [Breo Ellipta] 100-25 mcg/dose blister with device 1 inh inhalation Q24H Qty: 60 0RF albuterol sulfate [Ventolin HFA] 90 mcg/actuation HFA aerosol inhaler 1 inh inhalation QID PRN (Reason: shortness of breath or wheezing) Qty: 8.5 0RF guaifenesin [Mucinex] 600 mg Tablet Extended Release 12hr 600 mg PO BID Qty: 12 0RF lactulose 10 gram/15 mL Solution 20 g PO DAILY PRN (Reason: Constipation) Qty: 1200 0RF docusate sodium [Colace] 100 mg capsule 100 mg PO DAILY PRN (Reason: constipation) Qty: 30 0RF nicotine 21 mg/24 hr patch 24 hour 1 patch transdermal DAILY Qty: 7 0RF Continued cyanocobalamin (vitamin B-12) [Vitamin B-12] 1,000 mcg Tablet 1,000 mcg PO DAILY vitamin B complex Tablet 1 tab PO DAILY Discharge Orders: Discharge Order (Routine); Ordered 06/08/25 Ordered By: Jolene Nascimento Diet: Advance to usual diet Activity on Discharge: As tolerated Stand Alone Forms: Patient Portal Discharge page Print Language: Romanian Care Plan Goals: prednisone 40 mg po qd taper, also added albuterol/breo, cough medication. Health Concerns: As above. Plan of Treatment: As above. Assessment: As above.
--- NOTE | 2025-06-08 13:58 | MHC.CM.PN ---
Pt. has been medically cleared to [place], he will go home via private transport, plan is self care.
[2025-06-08 16:00] VITALS: BP 136/87; PULSE 122; RESP 18; TEMP 36.2; O2SAT 91
== END 2025-06-08 16:48 | disposition home or self-care (01) | DRG 140 ==
LOC: HO.ED 17:21 → HO.EDOVER 22:38 → HO.IMC 06-02 14:37
PROVIDERS: Internal Medicine; Admitting Provider Hospitalist; Emergency Provider Student in an Organized Health Care Education/Training Program; Visit Provider Internal Medicine
DX: J44.1 Chronic obstructive pulmonary disease with (acute) exacerbation (principal); J96.01 Acute respiratory failure with hypoxia; F17.210 Nicotine dependence, cigarettes, uncomplicated; Z20.822 Contact with and (suspected) exposure to COVID-19; Z71.6 Tobacco abuse counseling; Z79.51 Long term (current) use of inhaled steroids; Z79.899 Other long term (current) drug therapy
CPT/HCPCS: 36415; 71045; 80048; 80053; 82803; 83735; 85025; 85379; 87502; 87633; 87635; 94640; 97116; 97162; 99285; J1650; J2919; J3475

== ENCOUNTER → 2025-06-01 16:50 | Outpatient (BNV) | payer MEDICAID, SELFPAY | PROVIDERS: Emergency Provider Student in an Organized Health Care Education/Training Program; Visit Provider Nuclear Medicine | DX: R06.02 Shortness of breath (principal) | CPT/HCPCS: 71045 ==

== ENCOUNTER → 2025-06-01 22:33 | Outpatient (BNV) | payer MEDICAID, SELFPAY | PROVIDERS: Admitting Provider Hospitalist; Emergency Provider Student in an Organized Health Care Education/Training Program; Visit Provider Internal Medicine | DX: J44.9 Chronic obstructive pulmonary disease, unspecified (principal) | CPT/HCPCS: 99223; 99232 ==